=== PATIENT | female | born 1975 | race Caucasian/White ===

== ENCOUNTER → 2024-06-25 07:37 | Outpatient (REF) | payer OTHER, SELFPAY | LOC: HWWDC 07:37 | PROVIDERS: ATTENDING PHYSICIAN Physician Assistant Medical | DX: Z12.31 Encounter for screening mammogram for malignant neoplasm of breast (principal) | CPT/HCPCS: 77063; 77067 ==

== ENCOUNTER → 2024-07-02 08:34 | Outpatient (REF) | payer OTHER, SELFPAY | LOC: WDC 08:34 | PROVIDERS: ATTENDING PHYSICIAN Physician Assistant Medical | DX: R92.8 Other abnormal and inconclusive findings on diagnostic imaging of breast (principal) | CPT/HCPCS: 76642 ==

== ENCOUNTER 2024-12-15 02:50 | Inpatient (IN) | payer OTHER, SELFPAY ==
[2024-12-14 19:09] VITALS: BP 131/78
[2024-12-14] MEDS: TYLENOL 1000 MG PO (19:20)
[2024-12-14 19:38] LABS: % Basophils 0.3 % (0-2); % Eosinophils 0.1 % (0-6); % Immature Granulocytes 0.4 % (0-0.5); % Lymphocytes 3.8 % (20.5-51.1); % Monocytes 7.7 % (1.7-9.3); % Neutrophils 87.7 % (42.2-75.2); Absolute Lymphocytes 0.4 10^3/uL (1.2-3.4); Absolute Monocytes 0.8 10^3/uL (0.1-0.6); Absolute Neutrophils 8.8 10^3/uL (1.4-6.5); Hematocrit 36.3 % (37.0-47.0); Hemoglobin 12.1 g/dL (12.0-16.0); Mean Corp Hgb Conc. 33.3 g/dL (33.0-37.0); Mean Corpuscular Hgb 29.4 pg (27.0-31.0); Mean Corpuscular Volume 88.1 fL (81.0-99.0); Mean Platelet Volume 10.8 fL (7.4-10.4); Nucleated Red Blood Cells % 0 %; Platelet Count 134 10^3/uL (130-400); Red Blood Cell Count 4.12 10^6/uL (4.20-5.40); Red Cell Dist. Width 13.2 % (11.5-14.5)
[2024-12-14 19:48] LABS: Urine Albumin 3+ (Neg - Trace); Urine Bilirubin Negative (Negative); Urine Character Slightly Cloudy (Clear); Urine Color Yellow; Urine Glucose Negative (Negative); Urine Ketone 2+ (Negative); Urine Leukocyte 3+ (Negative); Urine Nitrite Positive (Negative); Urine Occult Blood 4+ (Negative); Urine Specific Gravity 1.015 (<1.030); Urine Urobilinogen 1+ (Neg - 1+)
[2024-12-14 19:49] LABS: HCG, Serum Qualitative Screen Negative
[2024-12-14 19:51] LABS: ALT (SGPT) 13 U/L (0-35); AST (SGOT) 23 U/L (14-36); Albumin 3.8 g/dl (3.5-5.0); Alkaline Phosphatase 91 U/L (38-126); Blood Urea Nitrogen 14 mg/dl (7-17); Calcium 9.3 mg/dl (8.4-10.2); Carbon Dioxide 24 mmol/L (22-30); Chloride 102 mmol/L (98-107); Glucose 132 mg/dl (70-99); Potassium 3.5 mmol/L (3.5-5.1); Sodium 135 mmol/L (135-145); Total Bilirubin 0.5 mg/dl (0.2-1.3); Total Protein 6.7 g/dl (6.3-8.2); eGFR > 60.00
[2024-12-14 19:53] LABS: COVID-19 Antigen Negative (Negative)
[2024-12-14 19:55] LABS: Urine Red Blood Cell >100 /HPF (0-2)
[2024-12-14 19:57] LABS: Troponin I < 0.012 ng/ml
[2024-12-14 19:57] LABS: Urine Bacteria Many (Negative); Urine White Cell 60-70 /HPF (0-5)
[2024-12-14 21:15] VITALS: BP 113/69; BMI 16.6
[2024-12-14 22:00] VITALS: BP 105/63
--- NOTE | 2024-12-14 22:08 | ED.GENMED ---
History of Present Illness
General
Chief Complaint: Fever
Time Seen by Provider: 12/14/24 21:54
History of Present Illness
History of Present Illness:
49-year-old female with history of celiac disease presents to the emergency department for evaluation of headaches, fever, nausea and vomiting, as well as left flank pain that began yesterday morning. She does report dark and even bloody urine. No
diarrhea. No ill contacts.
Review of Systems
Review of Systems
Allergies reviewed?: Yes
All Other Systems: ROS reviewed and negative except as documented in HPI and ROS
Phy Exam
Physical Exam
Physical Exam:
GEN: Well appearing, NAD, WDWN
HEENT: Oral mucosa moist, no scleral icterus
Cardiac: Regular rate
Lung: No respiratory distress, no tachypnea
Abdomen: Soft, grossly nontender
MSK: No gross deformity or injuries
Skin: Good color, no pallor or jaundice, no rashes
Neuro: AO x3, moves all extremities freely
Psych: Calm, cooperative
Sepsis
Sepsis Screening
Sepsis Assessment: Sepsis
Sepsis Screen
Sepsis Screen: Sepsis
Date: 12/15/24
Time: 00:02
Course
Orders/Labs/Results
Orders:
Orders
12/14/24 19:12
Electrocardiogram (*1) Urgent
Reason for Study: Chest Pain
12/14/24 19:13
EKG- Treatment ONCE
Test Result ONCE
12/14/24 19:16
Acetaminophen [Tylenol] 1,000 mg .ROUTE .STK-MED ONE
12/14/24 19:20
Acetaminophen [Tylenol] 1,000 mg PO NOW STA
12/14/24 19:24
COVID-19 Antigen Urgent
Source: Nasal Swab
Complete Blood Count/With Diff Urgent
Comprehensive Metabolic Panel Urgent
HCG, Serum Qualitative Screen Urgent
Troponin I Urgent
Influenza A+B Rapid Molecular Urgent
MARLON Source: Nasal Swab
Specimen Description:
Date Specimen was Collected: 12/14/24
Time Specimen was Collected: 19:13
12/14/24 19:41
Urinalysis Reflex To Culture Urgent
Date Specimen was Collected: 12/14/24
Time Specimen was Collected: 19:13
Urine Microscopic Reflex Cult Urgent
Urine Culture Urgent
MARLON Source: U
Specimen Description:
Date Specimen was Collected: 12/14/24
Time Specimen was Collected: 19:13
12/14/24 22:07
CT Abd/pel Without Iv Or Oral Urgent
Comment:
Reason For Exam: L flank pain
0.9% Sodium Chloride 1000 ml [Nss] 1,000 ml IV BOLUS
CefTRIAXone [Rocephin] 1,000 mg IV NOW STA
Ketorolac [Toradol] 15 mg IV NOW STA
Abnormal Lab Results
12/14/24 12/14/24
19:24 19:41
RBC 4.12 L 10^6/uL
(4.20-5.40)
Hct 36.3 L %
(37.0-47.0)
MPV 10.8 H fL
(7.4-10.4)
Absolute Neuts (auto) 8.8 H 10^3/uL
(1.4-6.5)
Absolute Lymphs (auto) 0.4 L 10^3/uL
(1.2-3.4)
Absolute Monos (auto) 0.8 H 10^3/uL
(0.1-0.6)
Neutrophils % 87.7 H %
(42.2-75.2)
Lymphocytes % 3.8 L %
(20.5-51.1)
Creatinine 0.5 L mg/dL
(0.6-1.0)
Glucose 132 H mg/dl
(70-99)
Urine Ketones 2+ A
(Negative)
Ur Occult Blood Reflex 4+ A
(Negative)
Urine Nitrite (Reflex) Positive A
(Negative)
Leukocyte Esterase Rfl 3+ A
(Negative)
Urine RBC >100 A /HPF
(0-2)
Urine WBC (Reflex) 60-70 A /HPF
(0-5)
Urine Bacteria (Reflex) Many A
(Negative)
Urine Albumin (Reflex) 3+ A
(Neg - Trace)
12/14/24 19:24
12/14/24 19:24
Vital Signs
Initial and Last Documented VS:
Initial Vital Signs
Temp Pulse Resp BP Pulse Ox
103.2 F H 127 18 131/78 99
12/14/24 19:09 12/14/24 19:09 12/14/24 19:09 12/14/24 19:09 12/14/24 19:09
Last Documented Vital Signs
Temp Pulse Resp BP Pulse Ox
102.7 F H 127 18 105/63 98
12/14/24 20:23 12/14/24 19:09 12/14/24 19:09 12/14/24 22:00 12/14/24 22:00
MDM/Problems Addressed
MDM/Problems Addressed:
Proximal kidney stone not likely obstructing and thus no indication for urgent intervention. Will admit for IV antibiotics due to pyelonephritis
*Critical Care Note
Total Time (30-74mins, 75-104mins- exclusive of procedures): Not Applicable
ED Attending Note
-
Portions of this chart may have been created with voice recognition software.� Occasional wrong word or��sound alike� substitutions may have occurred due to the inherent limitations of voice recognition software.
Discharge Plan
Departure
Patient Disposition: Admit
Date of Disposition: 12/15/24
Time of Disposition: 00:02
Admit to: Med/Surg
Presentation/result/management discussed w/ accepting MD/DO: Hospitalist
Discharge Problem:
Acute pyelonephritis
Referrals:
Micah Cespedes PA-C [Family Provider] -
Interventions
Interventions:
*Risk Screen - Suicide Last Done: 12/14/24 19:11
*General Assessment Last Done: 12/14/24 19:11
*Neglect/Abuse Screening Last Done: 12/14/24 19:11
*ED- Fall Risk Assessment Last Done: 12/14/24 21:18
*ED COVID-19 Vaccine History Last Done: 12/14/24 21:18
ED- Neurological Assessment Last Done: 12/14/24 21:18
ED-Skin Assessment Last Done: 12/14/24 21:18
Discharge Date and Time
Print Language: BAHRAINI
[2024-12-14] MEDS: NSS 1000 IV (22:16)
[2024-12-14] MEDS: TORADOL 15 MG IV (22:16)
[2024-12-14] MEDS: ROCEPHIN 1000 MG IV (22:18)
[2024-12-14 23:06] VITALS: BP 97/57
[2024-12-15] VITALS (9 sets, daily range): BP systolic 90–127; BP diastolic 55–82; BMI 16.8
--- NOTE | 2024-12-15 02:18 | HPS.HSE ---
Family Physician
-
Family Physician: CM OBRIEN PA-C
Chief Complaint
-
Fever
History of Present Illness
This is a 49-year-old female with past medical history significant for celiac disease, depression who presents to the emergency department with fever.
Patient reports 2 days of left-sided flank pain, she then developed nausea vomiting and she was unable to tolerate p.o. for 2 days. She started having fevers chills and sweats and she decided come to the emergency department. She denies dysuria.
She denies hematuria. She denies prior history of urinary tract infections or kidney stones. She denies any diarrhea. She has no known sick contact. She denies any recent antibiotic use. She denies any recent hospitalizations.
In the emergency department she was febrile to 102.9, blood pressure was 94/60 with a pulse of 120. Oxygen saturation was normal on room air. ECG shows sinus tachycardia to 108 and otherwise nonacute. CBC was unremarkable. Electrolytes
BUN/creatinine were all in normal range. UA was markedly positive for pyuria, bacteriuria nitrites and leukocyte esterase.
A CT scan of the abdomen pelvis shows a 4 mm without calculus in the left renal pelvis which does not appear to be obstructing with some surrounding fluid. There was dilation of the left ureter extending to the left ureteral vesicle junction with
surrounding edema. There was a small to moderate amount of free fluid in the pelvic cul-de-sac. Moderate fatty liver infiltration.
Medical History
Past Medical History
Past Medical History: Reports Psychiatric and Other (Celiac disease)
Past Surgical History: Reports Gynocological (Left-sided oophorectomy and oviduct resection)
Social History
Tobacco: Non-smoker
Alcohol: None
Drug: None
Employment: Employed
Family History
Family History: Not pertinent
Allergies / Home Medications
Allergies reflects when Allergies were last updated in [facility].
Home Medications with original date entered in [facility]
Allergy/Medication List:
Allergies
Allergy/AdvReac Type Severity Reaction Status Date / Time
NKA - No Known Allergies Allergy Uncoded 01/25/08 12:56
Venlafaxine 75 mg tablet, 75 mg p.o. daily
Review of Systems
-
History Source: Patient
Constitutional: Reports Fever
EENT: Reports No Symptoms
Respiratory: Reports No Symptoms
Cardiac: Reports No Symptoms
Abdomen/GI: Reports Nausea and Vomiting
: Reports Flank Pain
Musculoskeletal: Reports No Symptoms
Skin: Reports No Symptoms
Neurological: Reports No Symptoms
Endocrine: Reports No Symptoms
Hematologic/Lymphatic: Reports No Symptoms
Psych: Reports No Symptoms
Physical Exam
Vital Signs
Vital Signs
Temp Pulse Resp BP Pulse Ox
102.7 F H 127 18 90/55 96
12/14/24 20:23 12/14/24 19:09 12/14/24 19:09 12/15/24 02:00 12/15/24 02:00
Physical Exam
General: Comfortable and Chills
HEENT: NormoCephalic, Anicteric, Moist mucous membranes and Atraumatic
Respiratory: Clear
Cardiac: S1/S2 and Tachycardia
Breast: Deferred by me
GI: Soft, Non Tender, Non Distended and Normal Bowel Sounds
Rectal: Deferred by Provider
Genito-urinary: Costovertebral angle tend
Musculoskeletal: No Clubbing, No Cyanosis and No Edema
Skin: Warm
Neuro: AO x 3 and Nonfocal/grossly intact
Hematologic/Lymphatic: No Lymphadenopathy
Psych: Calm
Laboratory Results
-
12/14/24 19:24
12/14/24 19:24
Laboratory Results
Total Bilirubin 0.5 mg/dl (0.2-1.3) 12/14/24 19:24
AST 23 U/L (14-36) 12/14/24 19:24
ALT 13 U/L (0-35) 12/14/24 19:24
Alkaline Phosphatase 91 U/L (38-126) 12/14/24 19:24
Troponin I < 0.012 ng/ml 12/14/24 19:24
Data Reviewed
-
CT Scan: Report Reviewed by me
Medical Tests (Nuc Med, Echo, EKG etc): Image Personally Visualized and interpreted
Lab Data: Labs Reviewed by me
Old Records: Reviewed
Impression/Plan
-
IMPRESSION:
49-year-old female with history of depression and celiac disease who presents to the emergency department with flank pain and fever and found to have positive Fridays on urinalysis with CT scan showing a nonobstructing vomiting without stone in the
left renal pelvis with some surrounding fluid, there appears to be a dilation of the left ureter extending to the left ureteral vesicle junction consistent with recently passed stone. Separately with fever and tachycardia.
PLAN:
Pyelonephritis - Complicated with non-obstructing stone.
- admit to med/surg
- urine cultures sent
- obtain blood cultures if febrile
- IV ceftriaxone
- IV fluids
- pain control and antiemetics
- d/w urology, no indication for acute intervention but they'll see her in am.
DVT PPX - SCDs pending urology
Code status - Full Code
[2024-12-15] MEDS: LR 1000 IV ×2 (04:57→21:36)
[2024-12-15] MEDS: TORADOL 10 MG IV (05:03)
[2024-12-15 09:35] LABS: Blood Urea Nitrogen 15 mg/dl (7-17); Calcium 9.1 mg/dl (8.4-10.2); Carbon Dioxide 27 mmol/L (22-30); Chloride 103 mmol/L (98-107); Estimated Creatinine Clearance 85 ml/min; Glucose 99 mg/dl (70-99); Potassium 3.3 mmol/L (3.5-5.1); Sodium 136 mmol/L (135-145); eGFR > 60.00
[2024-12-15 09:46] LABS: Hematocrit 33.8 % (37.0-47.0); Hemoglobin 10.9 g/dL (12.0-16.0); Mean Corp Hgb Conc. 32.2 g/dL (33.0-37.0); Mean Corpuscular Hgb 29.1 pg (27.0-31.0); Mean Corpuscular Volume 90.1 fL (81.0-99.0); Red Blood Cell Count 3.75 10^6/uL (4.20-5.40); Red Cell Dist. Width 13.3 % (11.5-14.5); White Blood Cell Count 8.6 10^3/uL (4.8-10.8)
--- NOTE | 2024-12-15 10:11 | W.PN.URO.CBU ---
Today's Communication / Plan
-
no op roomplanned follow cxs of urine
Assessment / Plan
-
left pyelo with incidental d=]finding of 4 mm mnon obstructing stoen Will proceed with ibv abs and chs=angelica cxs. For ryan stone has little chance to have been setiology of infection but of increae pain or prolonged fevr then needs repaet ct scan
to see if stone moved
Diagnosis
-
Date of Service: December 15, 2024
-
Patient Diagnosis:left pyelonephritis non obstructing stone no hydro left renal pelvis
Post Op Day:
Subjective
-
lef t pain improving fever improving
Objective
-
Vital Signs
Temp Pulse Resp BP Pulse Ox
98 F 93 16 109/66 99
12/15/24 07:43 12/15/24 07:43 12/15/24 07:43 12/15/24 07:43 12/15/24 07:43
Intake and Output
12/14/24 12/15/24 12/16/24
06:59 06:59 06:59
Intake Total 480 / 480
Balance 480 / 480
Intake:
Oral fluids 480 / 480
Laboratory Results
12/15/24 08:59
12/15/24 08:59
Review of Systems
-
Constitutional: Chills
: Flank Pain and Dark Urine
Physical Exam
-
General - well developed, well nourished, no acute distress
Chest - clear bilaterally
Abdomen - soft, non-tender, positive bowel sounds, no CVAT, no incisional pain or distention
Genitalia - normal
Rectal - normal
Skin - warm & dry with no rash
Neuro - AOx3, no motor deficits
Extremities - no clubbing, no cyanosis, no edema
Incision - clean, dry
Dressing - clean, dry, intact
Care Review
Data Reviewed
Discussed with: Hospitalist and Nursing
CT Scan: Image Pers Reviewed
[2024-12-15] MEDS: ZOFRAN 4 MG IV (10:26)
[2024-12-15 10:31] LABS: Mean Platelet Volume 10.5 fL (7.4-10.4); Platelet Count 114 10^3/uL (130-400)
[2024-12-15] MEDS: DILAUDID 0.5 MG IV ×2 (11:33→20:18)
[2024-12-15] MEDS: REGLAN 10 MG IV (11:33)
--- NOTE | 2024-12-15 12:27 | W.PN.UPDATE ---
Addendum entered and electronically signed by Rogelio Pedersen MD 12/15/24 12:35:
Hypokalemia
replete
-since vomiting will proive a krider
Original Note:
Update Note
Progress Note Update
Seen and examined. Nausea with vomiting
Rigors
Scleral Anicteric
MMM
No JVD
CTABL
RRR, S1/S2
Soft, NT, ND, BS+
Warm, Dry
Left-sided CVA tenderness positive
AAOx3
Calm
Pyelonephritis secondary to non-obstructed stone
IV antibiotics with Rocephin
IV fluids with LR at a rate of 80 cc/h
Flomax started
Urine culture pending
Blood culture x 2 ordered
Nausea vomiting
Antiemetic, QTc 407
[2024-12-15] MEDS: FLOMAX 0.4 MG PO (12:47)
[2024-12-15] MEDS: KCL 270 MEQ IV (13:14)
--- NOTE | 2024-12-15 16:42 | CM ---
Alert awake oriented patient who lives alone in an apartment with 16 steps to enter .She is independent in driving and in all activities of daily living.Offered VN she declined.
No adaptive devices
Never had VN/SNF
Pharmacy [facility]
PCP Dr Cespedes
PLAN Home no needs
[2024-12-15] MEDS: Pyridium 100 MG PO (20:18)
[2024-12-15] MEDS: EFFEXOR XR 75 MG PO (21:32)
[2024-12-15] MEDS: STERILE WATER FOR INJECTION 10 ML IV (21:32)
[2024-12-15] MEDS: ROCEPHIN 1000 MG IV (21:33)
[2024-12-15] MEDS: TYLENOL 650 MG PO (23:05)
[2024-12-16] MEDS: ZOFRAN 4 MG IV ×2 (00:56→18:38)
[2024-12-16] MEDS: TORADOL 10 MG IV ×2 (00:56→20:45)
[2024-12-16 07:45] VITALS: BP 105/65
[2024-12-16] MEDS: FLOMAX 0.4 MG PO (07:46)
--- NOTE | 2024-12-16 12:39 | W.PN.URO.CBU ---
Today's Communication / Plan
-
stable continuwe present care
Assessment / Plan
-
left pyelo with incidental d=]finding of 4 mm mnon obstructing stone pt improving continue present care target cxs as avaiable
Diagnosis
-
Date of Service: December 16, 2024
-
Patient Diagnosis:
Post Op Day:
Patient Diagnosis:left pyelonephritis non obstructing stone no hydro left renal pelvis
Post Op Day:
Subjective
-
feeling better
Objective
-
Vital Signs
Temp Pulse Resp BP Pulse Ox
98.1 F 76 16 105/65 99
12/16/24 11:21 12/16/24 07:45 12/16/24 07:45 12/16/24 07:45 12/16/24 07:45
Intake and Output
12/15/24 12/16/24 12/17/24
06:59 06:59 06:59
Intake Total 480 / 480 1440 / 1440
Balance 480 / 480 1440 / 1440
Intake:
Oral fluids 480 / 480 1440 / 1440
Other:
Number of approximated MODERATE 2
amounts of urine
Laboratory Results
12/15/24 08:59
12/15/24 08:59
Review of Systems
-
: Flank Pain
Physical Exam
-
General - well developed, well nourished, no acute distress
Chest - clear bilaterally
Abdomen - soft, non-tender, positive bowel sounds, no CVAT, no incisional pain or distention
Genitalia - normal
Rectal - normal
Skin - warm & dry with no rash
Neuro - AOx3, no motor deficits
Extremities - no clubbing, no cyanosis, no edema
Incision - clean, dry
Dressing - clean, dry, intact
Care Review
Data Reviewed
Discussed with: Nursing and Family
[2024-12-16] MEDS: LR 1000 IV (12:50)
--- NOTE | 2024-12-16 13:01 | W.PN.HOSP.TC ---
Today's Communication/Plan
-
IV Rocephin
Follow-up on urine culture sensitivities and de-escalate Rocephin to oral
Continue Flomax
Continue IV fluids
Continue Pyridium
Assessment / Plan
Assessment / Plan
NAD, sitting upright in bed
Scleral Anicteric
MMM
No JVD
CTABL
RRR, S1/S2
Soft, NT, ND, BS+
Warm, Dry
Left-sided CVA tenderness positive
AAOx3
Calm
Pyelonephritis secondary to non-obstructed stone
IV antibiotics with Rocephin
IV fluids with LR at a rate of 80 cc/h
Flomax started
Urine culture Ecoli, await sensitivities
Blood culture x 2 ordered
Nausea vomiting
Antiemetic, QTc 407
Anticipated Discharge: 24 - 48 hours
Subjective/Interval History
-
Date of Service: December 16, 2024
Seen and examined. Intermittent nausea. No further vomiting. Flank pain continues to to be an issue however improving.
Continues to have burning with urination. Flank pain worse when urinating.
Objective Data
-
Vital Signs:
Vital Signs
Temp Pulse Resp BP Pulse Ox
98.1 F 76 16 105/65 99
12/16/24 11:21 12/16/24 07:45 12/16/24 07:45 12/16/24 07:45 12/16/24 07:45
I&O
12/15/24 12/16/24 12/17/24
06:59 06:59 06:59
Intake Total 480 / 480 1440 / 1440
Balance 480 / 480 1440 / 1440
[2024-12-16] MEDS: KCL 270 MEQ IV (14:30)
[2024-12-16] MEDS: DILAUDID 0.5 MG IV ×2 (14:34→18:39)
[2024-12-16 15:38] VITALS: BP 110/70
[2024-12-16] MEDS: FLUSH (NSS) 2 FLUSH IV (18:39)
[2024-12-16] MEDS: COMPAZINE 5 MG IV (20:44)
[2024-12-16] MEDS: STERILE WATER FOR INJECTION 10 ML IV (21:15)
[2024-12-16] MEDS: EFFEXOR XR 75 MG PO (21:15)
[2024-12-16] MEDS: ROCEPHIN 1000 MG IV (21:16)
[2024-12-16 23:00] VITALS: BP 98/52
[2024-12-17] MEDS: DILAUDID 0.5 MG IV (03:36)
[2024-12-17] MEDS: LR 1000 IV ×3 (07:11→18:31)
[2024-12-17 07:21] VITALS: BP 116/56
[2024-12-17] MEDS: FLOMAX 0.4 MG PO (07:34)
[2024-12-17] MEDS: TORADOL 10 MG IV (07:39)
[2024-12-17 10:37] LABS: Blood Urea Nitrogen 13 mg/dl (7-17); Calcium 8.8 mg/dl (8.4-10.2); Carbon Dioxide 27 mmol/L (22-30); Chloride 106 mmol/L (98-107); Estimated Creatinine Clearance 85 ml/min; Glucose 93 mg/dl (70-99); Potassium 4.1 mmol/L (3.5-5.1); Sodium 139 mmol/L (135-145); eGFR > 60.00
[2024-12-17 10:48] LABS: Hematocrit 32.9 % (37.0-47.0); Hemoglobin 10.5 g/dL (12.0-16.0); Mean Corp Hgb Conc. 31.9 g/dL (33.0-37.0); Mean Corpuscular Hgb 28.8 pg (27.0-31.0); Mean Corpuscular Volume 90.1 fL (81.0-99.0); Mean Platelet Volume 10.7 fL (7.4-10.4); Platelet Count 147 10^3/uL (130-400); Red Blood Cell Count 3.65 10^6/uL (4.20-5.40); Red Cell Dist. Width 13.6 % (11.5-14.5); White Blood Cell Count 5.6 10^3/uL (4.8-10.8)
[2024-12-17] MEDS: ROXICODONE 5 MG PO ×3 (13:22→22:09)
--- NOTE | 2024-12-17 14:57 | W.PN.HOSP.TC ---
Today's Communication/Plan
-
Maintain 1 more day of IV antibiotics
Changed to oral pain medication
Likely discharge earlier tomorrow
Assessment / Plan
Assessment / Plan
CT a/p
4 mm calculus in the left renal pelvis, which does not appear to be obstructing with some surrounding fluid.
Dilation of the left ureter extending to the left ureterovesical junction, with edema surrounding the left ureter. Small to moderate amount of free fluid within the pelvic cul-de-sac. Findings would be suggestive of recently passed distal ureteral
calculus. Of note, with history of fever, superimposed infection cannot be excluded.
Trace amount of pleural fluid within the posterior lower chest bilaterally. Mild dependent atelectasis.
Moderate fatty infiltration the liver.
Spleen has maximum dimension of 12.7 cm, in the upper range of normal.

1. Left-sided pyelonephritis
UTI from E coli
-CT abdomen pelvis finding as above suggestive of left-sided pyelonephritis
-Continues to have fever, frequency and severity trending down
-Urine culture growing E. coli which is pansensitive to antibiotics
-Maintain on IV Rocephin for another day
-Stop further IV fluid
-Maintain on prn oxy/toradol
2. Nausea/vomiting
-Continue symptomatic care
-Able to tolerate diet
3. Depression/anxiety
-maintain on Effexor 75mg/hs
SCD
Full code
Anticipated Discharge: Within 24 hours
Subjective/Interval History
-
Date of Service: December 17, 2024
Still has some left flank pain
still have some nausea. able to tolerate breakfast
fever last evening
Objective Data
-
Labs:
Laboratory Results
12/17/24
08:02
WBC 5.6
Hgb 10.5 L
Hct 32.9 L
Plt Count 147 D
Sodium 139
Potassium 4.1
Chloride 106
Carbon Dioxide 27
BUN 13
Creatinine 0.6
Glucose 93
Calcium 8.8
Vital Signs:
Vital Signs
Temp Pulse Resp BP Pulse Ox
98.3 F 68 18 116/56 97
12/17/24 10:51 12/17/24 07:21 12/17/24 07:21 12/17/24 07:21 12/17/24 07:21
I&O
12/16/24 12/17/24 12/18/24
06:59 06:59 06:59
Intake Total 1440 / 1440 1080 / 1080
Output Total 700 / 700
Balance 1440 / 1440 380 / 380
Review of Systems
-
Respiratory: Reports No Symptoms
Cardiac: Reports No Symptoms
Abdomen/GI: Reports Nausea; Denies Vomiting
Genitourinary: Reports Flank Pain
Physical Exam
-
General: Comfortable
HEENT: Negative Oxygen
Respiratory: Clear to Auscultation
Cardiac: Regular Rhythm and S1/S2; Negative Murmur or Rub
GI: Soft, Nontender and Nondistended
Genito-urinary: Costovertebral Angle Tend (Left side)
Musculoskeletal: No Edema
Neuro: Awake, Alert, Oriented, No Motor Deficits and Nonfocal/Grossly Intact
Psych: Calm
[2024-12-17 15:00] VITALS: BP 120/77
--- NOTE | 2024-12-17 17:43 | W.PN.URO.CBU ---
Today's Communication / Plan
-
call md if tempover 101.[address] scan to check stone
Assessment / Plan
-
left pyelo with incidental d=]finding of 4 mm mm non obstructing stone pt improving continue present care target cxs as sensitivities available however did have low grade temp fever last pm despite abs, if fever pain persists will
need repeat ct scan to check on stone
Diagnosis
-
Date of Service: December 17, 2024
-
Patient Diagnosis:
Post Op Day:
Patient Diagnosis:
Post Op Day:
Patient Diagnosis:left pyelonephritis non obstructing stone no hydro left renal pelvis
Post Op Day:
Subjective
-
some increaseed oain low grade temp last pm
Objective
-
Vital Signs
Temp Pulse Resp BP Pulse Ox
98.2 F 93 16 120/77 99
12/17/24 15:00 12/17/24 15:00 12/17/24 15:00 12/17/24 15:00 12/17/24 15:00
Intake and Output
12/16/24 12/17/24 12/18/24
06:59 06:59 06:59
Intake Total 1440 / 1440 1080 / 1080
Output Total 700 / 700
Balance 1440 / 1440 380 / 380
Intake:
Oral fluids 1440 / 1440 1080 / 1080
Output:
Urine, Voided 700 / 700
Other:
Number of approximated MODERATE 2 1
amounts of urine
Number of approximated LARGE 1
amounts of urine
Laboratory Results
12/17/24 08:02
12/17/24 08:02
Review of Systems
-
Constitutional: Fever
: Flank Pain
Physical Exam
-
General - well developed, well nourished, no acute distress
Chest - clear bilaterally
Abdomen - soft, non-tender, positive bowel sounds, no CVAT, no incisional pain or distention
Genitalia - normal
Rectal - normal
Skin - warm & dry with no rash
Neuro - AOx3, no motor deficits
Extremities - no clubbing, no cyanosis, no edema
Incision - clean, dry
Dressing - clean, dry, intact
Care Review
Data Reviewed
Discussed with: Hospitalist and Nursing
CT Scan: Image Pers Reviewed
[2024-12-17] MEDS: TYLENOL 650 MG PO (21:18)
[2024-12-17] MEDS: STERILE WATER FOR INJECTION 10 ML IV (21:18)
[2024-12-17] MEDS: ROCEPHIN 1000 MG IV (21:18)
[2024-12-17] MEDS: EFFEXOR XR 75 MG PO (21:18)
[2024-12-17 23:54] VITALS: BP 107/66
[2024-12-18 07:25] VITALS: BP 122/73
[2024-12-18 08:42] LABS: Hematocrit 32.3 % (37.0-47.0); Hemoglobin 10.6 g/dL (12.0-16.0); Mean Corp Hgb Conc. 32.8 g/dL (33.0-37.0); Mean Corpuscular Hgb 29.5 pg (27.0-31.0); Mean Platelet Volume 10.6 fL (7.4-10.4); Platelet Count 156 10^3/uL (130-400); Red Blood Cell Count 3.59 10^6/uL (4.20-5.40); Red Cell Dist. Width 13.6 % (11.5-14.5); White Blood Cell Count 4.7 10^3/uL (4.8-10.8)
--- NOTE | 2024-12-18 09:06 | W.PN.URO.CBU ---
Today's Communication / Plan
-
home whrn ok by hospital;ist
Assessment / Plan
-
left pyelo with incidental d=]finding of 4 mm mm non obstructing stone pt improving continue present [facility] when ok by hos[pital;ist
Diagnosis
-
Date of Service: December 18, 2024
-
Patient Diagnosis:
Post Op Day:
Patient Diagnosis:
Post Op Day:
Patient Diagnosis:
Post Op Day:
Patient Diagnosis:left pyelonephritis non obstructing stone no hydro left renal pelvis
Post Op Day:
Subjective
-
feels baseline no fever
Objective
-
Vital Signs
Temp Pulse Resp BP Pulse Ox
98.1 F 73 16 122/73 96
12/18/24 07:25 12/18/24 07:25 12/18/24 07:25 12/18/24 07:25 12/18/24 07:25
Intake and Output
12/17/24 12/18/24 12/19/24
06:59 06:59 06:59
Intake Total 1080 / 1080 3360 / 3360
Output Total 700 / 700 400 / 400
Balance 380 / 380 2960 / 2960
Intake:
Oral fluids 1080 / 1080 1440 / 1440
IV fluids (Total) 1919 / 1919
Output:
Urine, Voided 700 / 700 400 / 400
Other:
Number of approximated MODERATE 1 3
amounts of urine
Number of approximated LARGE 1
amounts of urine
Laboratory Results
12/18/24 07:44
Review of Systems
-
: No Symptoms
Physical Exam
-
General - well developed, well nourished, no acute distress
Chest - clear bilaterally
Abdomen - soft, non-tender, positive bowel sounds, no CVAT, no incisional pain or distention
Genitalia - normal
Rectal - normal
Skin - warm & dry with no rash
Neuro - AOx3, no motor deficits
Extremities - no clubbing, no cyanosis, no edema
Incision - clean, dry
Dressing - clean, dry, intact
[2024-12-18 09:38] LABS: Blood Urea Nitrogen 9 mg/dl (7-17); Calcium 8.9 mg/dl (8.4-10.2); Carbon Dioxide 32 mmol/L (22-30); Chloride 106 mmol/L (98-107); Estimated Creatinine Clearance 85 ml/min; Glucose 98 mg/dl (70-99); Potassium 3.8 mmol/L (3.5-5.1); Sodium 141 mmol/L (135-145); eGFR > 60.00
[2024-12-18] MEDS: LR IV ×2 (09:56→10:36)
[2024-12-18] MEDS: FLOMAX 0.4 MG PO (09:56)
[2024-12-18] MEDS: ROXICODONE 5 MG PO (10:04)
--- NOTE | 2024-12-18 10:48 | CM ---
Reviewed the chart notes and spoke with the patient at the bedside. Patient anticipates being discharged to home today. Patient's sister or niece will being providing transportation. CM continues to be available to patient/family and is
monitoring medical plan for needs at discharge.
Plan: Discharge to home when medically stable.
[2024-12-18 12:30] VITALS: BP 123/71
--- NOTE | 2024-12-18 14:03 | W.PN.HOSP.TC ---
Today's Communication/Plan
-
d/c home
Assessment / Plan
Assessment / Plan
CT a/p
4 mm calculus in the left renal pelvis, which does not appear to be obstructing with some surrounding fluid.
Dilation of the left ureter extending to the left ureterovesical junction, with edema surrounding the left ureter. Small to moderate amount of free fluid within the pelvic cul-de-sac. Findings would be suggestive of recently passed distal ureteral
calculus. Of note, with history of fever, superimposed infection cannot be excluded.
Trace amount of pleural fluid within the posterior lower chest bilaterally. Mild dependent atelectasis.
Moderate fatty infiltration the liver.
Spleen has maximum dimension of 12.7 cm, in the upper range of normal.

1. Left-sided pyelonephritis
UTI from E coli
-CT abdomen pelvis finding as above suggestive of left-sided pyelonephritis
-Continues to have fever, frequency and severity trending down
-Urine culture growing E. coli which is pansensitive to antibiotics
-Maintain on prn oxy/toradol
-Discharging on ciprofloxacin 500 mg twice daily for 5 more days - will get total 8 days abx
2. Nausea/vomiting -resolved
-Continue symptomatic care
-Able to tolerate diet
3. Depression/anxiety
-maintain on Effexor 75mg/hs
SCD
Full code
More than 30 minutes spent in discharge including
Final examination of the patient
Summarizing hospital stay
Instructions for continuing care to all relevant caregivers
Preparation of discharge records, prescriptions, and referral forms
Total time spent (in minutes): 38mins
Anticipated Discharge: Today
Subjective/Interval History
-
Date of Service: December 18, 2024
Pain is significantly improved
No nausea or vomiting
Afebrile overnight
Objective Data
-
Labs:
Laboratory Results
12/18/24
07:44
WBC 4.7 L
Hgb 10.6 L
Hct 32.3 L
Plt Count 156
Sodium 141
Potassium 3.8
Chloride 106
Carbon Dioxide 32 H
BUN 9
Creatinine 0.6
Glucose 98
Calcium 8.9
Vital Signs:
Vital Signs
Temp Pulse Resp BP Pulse Ox
97.9 F 76 14 123/71 98
12/18/24 12:30 12/18/24 12:30 12/18/24 12:30 12/18/24 12:30 12/18/24 12:30
I&O
12/17/24 12/18/24 12/19/24
06:59 06:59 06:59
Intake Total 1080 / 1080 3360 / 3360
Output Total 700 / 700 400 / 400
Balance 380 / 380 2960 / 2960
Review of Systems
-
Respiratory: Reports No Symptoms
Cardiac: Reports No Symptoms
Abdomen/GI: Reports No Symptoms
Physical Exam
-
General: Comfortable
HEENT: Negative Oxygen
Neuro: Awake, Alert, Oriented, No Motor Deficits and Nonfocal/Grossly Intact
Psych: Calm
--- NOTE | 2024-12-18 16:25 | W.DCSUMMARY ---
Discharge Summary
Discharge Data
Date of Admission: 12/15/24
Date of Discharge: 12/18/24
-
Pending Results: No
Hospital Course
Discharging Physician : Dr Hero Pedersen
Disposition : To home
Primary care physician : Dr Micah Cespedes
Principal Discharge diagnosis :
Left sided pyelonephritis
Escherichia Coli Urinary tract infection
Nausea/vomiting
Chronic Discharge diagnosis :
Depression/anxiety
Hospital Course :
Patient is a 49-year-old female with above-mentioned past medical history came to ER with new onset of nausea vomiting and left flank pain. Patient also had fever and chills and came to ER for further evaluation. In ER patient was found to be
septic with high-grade fever. Urinalysis was showing patient having significant pyuria and bacteriuria with nitrate positivity. A CT scan of abdomen pelvis was done which showed a 4 mm left renal pelvis stone which is nonobstructive in nature.
There was left upper ureteral inflammation noted suggestive of pyelonephritis. Patient was started on broad-spectrum IV antibiotic and urine and blood cultures were collected. Urology was involved in care and recommended conservative management
with antibiotic. Urine culture later identified E. coli as causative organism which was pansensitive to antibiotics. After improvement in clinical symptoms patient was transition to finishing course of ciprofloxacin. Patient is planned to be
followed up by urology in office.
Important imaging findings :
CT abdomen/pelvis
4 mm calculus in the left renal pelvis, which does not appear to be obstructing with some surrounding fluid. Dilation of the left ureter extending to the left ureterovesical junction, with edema surrounding the left ureter. Small to moderate amount
of free fluid within the pelvic cul-de-sac. Findings would be suggestive of recently passed distal ureteral calculus. Of note, with history of fever, superimposed infection cannot be excluded. Trace amount of pleural fluid within the posterior lower
chest bilaterally. Mild dependent atelectasis. Moderate fatty infiltration the liver. Spleen has maximum dimension of 12.7 cm, in the upper range of normal.
Procedure findings :
None
Discharge Plan
-
Patient Disposition: Home (Routine Discharge)
Discharge Diagnosis/Procedures: Acute left pyelonephritis from E coli
Condition: Fair
Diet: Regular
Activity: As tolerated
Driving Restrictions: As prior to admission
Bathing Restrictions: OK to Shower
Referrals:
Omar Guzmán MD [Active] - (call Dr Guzmán [phone] urology if questions problems please obtain urine culture at family doctor if symptoms or routinely 2- 4 weeks after yopu stop antibiotics You have a kidney stone if ever have
blood in urine or severe flank pain call urology or go to er)
Micah Cespedes PA-C [Family Provider] - in one week
Prescriptions:
New
ciprofloxacin HCl 500 mg tablet
500 mg PO BID Qty: 10 0RF
acetaminophen [Tylenol Extra Strength] 500 mg tablet
1,000 mg PO Q6H PRN (Reason: Mild mod pain) Qty: 30 0RF
ibuprofen 800 mg tablet
800 mg PO Q8H PRN (Reason: Sev pain) Qty: 10 0RF
Rx Instructions:
DO NOT TAKT MORE THAN 5 DAYS
Continued
venlafaxine [Effexor XR] 75 mg Capsule,Extended Release 24hr
75 mg PO HS
Discharge Orders:
Discharge Patient (As Directed); Ordered 12/18/24
Ordered By: Hero Pedersen
Discharge Date and Time
Discharge Date/Time: 12/18/24 12:41
Print Language: YAKUT
== END 2024-12-18 12:41 | disposition home or self-care (01) | DRG 690 ==
LOC: 3 WEST ACU 02:50
PROVIDERS: Emergency Medicine; Hospitalist; ADMITTING PHYSICIAN Internal Medicine; ATTENDING PHYSICIAN Hospitalist; CONSULT PHYSICIAN Specialist; EMERGENCY PHYSICIAN Emergency Medicine; FAMILY PHYSICIAN Physician Assistant Medical
DX: N13.6 Pyonephrosis (principal); J98.11 Atelectasis; B96.20 Unspecified Escherichia coli [E. coli] as the cause of diseases classified elsewhere; N20.0 Calculus of kidney; F32.A Depression, unspecified; F41.9 Anxiety disorder, unspecified; K76.0 Fatty (change of) liver, not elsewhere classified; Z11.52 Encounter for screening for COVID-19
CPT/HCPCS: 74176; 80048; 80053; 81003; 81015; 84484; 84703; 85025; 85027; 87040; 87086; 87088; 87186; 87502; 87811; 93005; 96361; 96374; 96375; 99285

== ENCOUNTER 2024-12-20 16:02 | Inpatient (IN) | payer OTHER, SELFPAY ==
[2024-12-20] VITALS (15 sets, daily range): BP systolic 98–152; BP diastolic 54–94; BMI 17.8
--- NOTE | 2024-12-20 11:40 | ED.GENMED ---
History of Present Illness
General
Chief Complaint: Abdominal Symptoms
Source: patient
Time Seen by Provider: 12/20/24 11:32
History of Present Illness
History of Present Illness:
49-year-old female recently discharged from this hospital for pyelonephritis. She was discharged on Cipro. Soon after taking her first dose of Cipro at home she started vomiting. She has not been able to stop vomiting since then. She also notes
associated headache. She did have a fever of 104 when she had a pyelonephritis however no longer has a fever. Blood cultures did not show any growth. She has a history of migraines. This headache she has currently feels like her migraine she has
had in the past
Phy Exam
Physical Exam
Physical Exam:
General: Well-appearing female no acute respiratory distress
HEENT: Normocephalic atraumatic
Heart: Regular rate and rhythm
Lungs: Clear no wheeze
Abdomen is soft mild left-sided costovertebral angle tenderness
Extremities: No cyanosis
Neurologic exam: Alert and oriented good strength normal gait conversing appropriately no facial asymmetry
Course
Orders/Labs/Results
Orders:
Orders
12/20/24 11:38
0.9% Sodium Chloride 1000 ml [Nss] 1,000 ml IV BOLUS
Diphenhydramine [Benadryl] 25 mg IV NOW STA
Prochlorperazine [Compazine] 10 mg IV NOW STA
12/20/24 11:39
Test Result ONCE
12/20/24 11:57
Complete Blood Count/With Diff Urgent
Comprehensive Metabolic Panel Urgent
HCG, Serum Qualitative Screen Urgent
Lipase Urgent
Urinalysis Reflex To Culture Urgent
Date Specimen was Collected: 12/20/24
Time Specimen was Collected: 11:15
Urine Microscopic Reflex Cult Urgent
Urine Culture Urgent
MARLON Source: U
Specimen Description:
Date Specimen was Collected: 12/20/24
Time Specimen was Collected: 11:15
12/20/24 13:43
CT Abd/pel Without Iv Or Oral Urgent
Comment:
Reason For Exam: left flank pain
12/20/24 15:36
CefTRIAXone [Rocephin] 1,000 mg IV NOW STA
Abnormal Lab Results
12/20/24
11:57
RBC 3.96 L 10^6/uL
(4.20-5.40)
Hgb 11.5 L g/dL
(12.0-16.0)
Hct 34.6 L %
(37.0-47.0)
Abs Immat Gran (auto) 0.1 H 10^3/uL
(0-0.05)
Immature Gran % 0.9 H %
(0-0.5)
Creatinine 0.5 L mg/dL
(0.6-1.0)
Total Protein 6.0 L g/dl
(6.3-8.2)
Albumin 3.2 L g/dl
(3.5-5.0)
Lipase 429 H U/L
(23-300)
Urine Ketones 2+ A
(Negative)
Ur Occult Blood Reflex 4+ A
(Negative)
Leukocyte Esterase Rfl 3+ A
(Negative)
Urine RBC 16-20 A /HPF
(0-2)
Urine WBC (Reflex) 11-15 A /HPF
(0-5)
Urine Bacteria (Reflex) Few A
(Negative)
Urine Albumin (Reflex) 1+ A
(Neg - Trace)
12/20/24 11:57
12/20/24 11:57
Vital Signs
Initial and Last Documented VS:
Initial Vital Signs
Temp Pulse Resp BP Pulse Ox
98.0 F 95 16 144/94 98
12/20/24 11:12 12/20/24 11:12 12/20/24 11:12 12/20/24 11:12 12/20/24 11:12
Last Documented Vital Signs
Temp Pulse Resp BP Pulse Ox
98.0 F 64 15 144/86 92
12/20/24 11:12 12/20/24 13:30 12/20/24 13:30 12/20/24 13:00 12/20/24 13:30
MDM/Problems Addressed
Differential Diagnosis Includes:
Vomiting. Question viral illness versus adverse reaction to new antibiotic. Given number of vomiting episodes will check for electrolyte abnormality. Suspect dehydration.
She also has a headache likely due to volume depletion and vomiting. Will treat symptoms with fluids Compazine Benadryl labs pending urine pending.
*Critical Care Note
Total Time (30-74mins, 75-104mins- exclusive of procedures): Not Applicable
Update Note
Update Note:
CT demonstrates 3 mm stone in left ureter causing mild obstruction. Patient is feeling better symptomatically after fluids and treatment. Discussed with urology. Given evidence of persistent UTI and recent diagnosis pyelonephritis urology plans
on the patient to the OR for stent. Hospitalist made aware as well Rocephin
ED Attending Note
-
Portions of this chart may have been created with voice recognition software.� Occasional wrong word or��sound alike� substitutions may have occurred due to the inherent limitations of voice recognition software.
Discharge Plan
Departure
Patient Disposition: Admit
Date of Disposition: 12/20/24
Time of Disposition: 15:44
Presentation/result/management discussed w/ accepting MD/DO: Hospitalist
Discharge Problem:
Acute pyelonephritis
Prescriptions:
No Action
venlafaxine [Effexor XR] 75 mg Capsule,Extended Release 24hr
75 mg PO HS
ciprofloxacin HCl 500 mg tablet
500 mg PO BID Qty: 10 0RF
acetaminophen [Tylenol Extra Strength] 500 mg tablet
1,000 mg PO Q6H PRN (Reason: Mild mod pain) Qty: 30 0RF
ibuprofen 800 mg tablet
800 mg PO Q8H PRN (Reason: Sev pain) Qty: 10 0RF
Rx Instructions:
DO NOT TAKT MORE THAN 5 DAYS
Referrals:
Micah Cespedes PA-C [Family Provider] -
Interventions
Interventions:
*Risk Screen - Suicide Last Done: 12/20/24 11:12
*General Assessment Last Done: 12/20/24 11:56
*Neglect/Abuse Screening Last Done: 12/20/24 11:12
*ED- Fall Risk Assessment Last Done: 12/20/24 11:56
*ED COVID-19 Vaccine History Last Done: 12/20/24 11:56
TK-Oghjph-Nwsmvdiixm Assessment Last Done: 12/20/24 11:57
Discharge Date and Time
Print Language: SLOVAK
[2024-12-20] MEDS: BENADRYL 25 MG IV (12:00)
[2024-12-20] MEDS: NSS 1000 IV ×2 (12:00→20:41)
[2024-12-20] MEDS: COMPAZINE 10 MG IV (12:00)
[2024-12-20 12:17] LABS: % Basophils 0.9 % (0-2); % Eosinophils 2.4 % (0-6); % Immature Granulocytes 0.9 % (0-0.5); % Lymphocytes 23.7 % (20.5-51.1); % Monocytes 6.8 % (1.7-9.3); % Neutrophils 65.3 % (42.2-75.2); Absolute Basophils 0.1 10^3/uL (0-0.2); Absolute Eosinophils 0.1 10^3/uL (0-0.7); Absolute Immature Granulocytes 0.1 10^3/uL (0-0.05); Absolute Lymphocytes 1.4 10^3/uL (1.2-3.4); Absolute Monocytes 0.4 10^3/uL (0.1-0.6); Absolute Neutrophils 3.8 10^3/uL (1.4-6.5); Hematocrit 34.6 % (37.0-47.0); Hemoglobin 11.5 g/dL (12.0-16.0); Mean Corp Hgb Conc. 33.2 g/dL (33.0-37.0); Mean Corpuscular Volume 87.4 fL (81.0-99.0); Mean Platelet Volume 9.3 fL (7.4-10.4); Nucleated Red Blood Cells % 0 %; Platelet Count 246 10^3/uL (130-400); Red Blood Cell Count 3.96 10^6/uL (4.20-5.40); Red Cell Dist. Width 12.9 % (11.5-14.5); White Blood Cell Count 5.8 10^3/uL (4.8-10.8)
[2024-12-20 12:26] LABS: HCG, Serum Qualitative Screen Negative
[2024-12-20 12:38] LABS: ALT (SGPT) 12 U/L (0-35); AST (SGOT) 21 U/L (14-36); Albumin 3.2 g/dl (3.5-5.0); Alkaline Phosphatase 78 U/L (38-126); Blood Urea Nitrogen 13 mg/dl (7-17); Calcium 9.2 mg/dl (8.4-10.2); Carbon Dioxide 28 mmol/L (22-30); Chloride 104 mmol/L (98-107); Estimated Creatinine Clearance 90 ml/min; Glucose 83 mg/dl (70-99); Lipase 429 U/L (23-300); Sodium 138 mmol/L (135-145); Total Bilirubin 0.5 mg/dl (0.2-1.3); eGFR > 60.00
[2024-12-20 13:52] LABS: Urine Albumin 1+ (Neg - Trace); Urine Bilirubin Negative (Negative); Urine Character Cloudy (Clear); Urine Color Yellow; Urine Glucose Negative (Negative); Urine Ketone 2+ (Negative); Urine Leukocyte 3+ (Negative); Urine Nitrite Negative (Negative); Urine Occult Blood 4+ (Negative); Urine Specific Gravity 1.015 (<1.030); Urine Urobilinogen Negative (Neg - 1+)
[2024-12-20 14:27] LABS: Urine Squamous Cell >30 /LPF (Few)
[2024-12-20 14:28] LABS: Urine Bacteria Few (Negative); Urine Mucus Few; Urine Red Blood Cell 16-20 /HPF (0-2)
--- NOTE | 2024-12-20 15:36 | CONS.URO ---
Addendum entered and electronically signed by Tenzin Bowser MD 12/20/24 15:45:
To OR for cystoscopy + left stent placement vs. left URS/LL/stone extraction/stent placement (if clinically feasible)
IV Levaquin final application reviewer to OR
Original Note:
Consultation
-
Date/Time Consultation Requested: 12/20/24
Date/Time Consultation Performed: 12/20/24
Requesting Provider: ED
Performing Provider: Niels
Reason for Consultation: obstructing proximal left ureteral stone, E. Coli cUTI
Medical History
History of Present Illness
49F recently admitted 12/14-12/18 for eft pyelonephritis (E. Coli on UCx, BCx x2 NG) re-presents with headache, vomiting, and persistent left flank pain.
Completing Ciprofloxacin antibiotic course upon discharge as instructed.
CTAP w/o IV contrast => 3 mm stone in proximal left ureter w/ moderate left hydronephrosis
Of note, 4 mm stone previously noted within left kidney (non-obstructing) during recent admission.
Past Medical History
Past Medical History: Psychiatric
Past Surgical History: Gynocological (left oophorectomy)
Social History
Tobacco: Non-smoker
Alcohol: None
Drug: None
Personal: Single
Living: With Family
Employment: Employed
Family History
Family History: Reviewed & Not Pertinent
Allergies/Home Medications
Allergies
Allergy/AdvReac Type Severity Reaction Status Date / Time
NKA - No Known Allergies Allergy Unknown Uncoded 12/20/24 11:14
Home Medications
�Medication �Instructions �Recorded �Confirmed �Type
venlafaxine 75 mg capsule,extended 75 mg PO HS 12/15/24 12/15/24 History
release 24 hr (Effexor XR)
acetaminophen 500 mg tablet 1,000 mg (2 x 500 mg) PO Q6H PRN 12/18/24 Rx
(Tylenol Extra Strength) Mild mod pain #30 tabs
ciprofloxacin HCl 500 mg tablet 500 mg PO BID #10 tabs 12/18/24 Rx
ibuprofen 800 mg tablet 800 mg PO Q8H PRN Sev pain #10 tabs 12/18/24 Rx
Review of Systems
-
History Source: Patient
A 12 point Review of Systems was completed except as noted: Yes
Constitutional: Reports No Symptoms
EENT: Reports No Symptoms
Respiratory: Reports No Symptoms
Cardiac: Reports No Symptoms
Abdomen/GI: Reports Vomiting
: Reports Flank Pain
Musculoskeletal: Reports No Symptoms
Skin: Reports No Symptoms
Neurological: Reports No Symptoms
Endocrine: Reports No Symptoms
Hematologic/Lymphatic: Reports No Symptoms
Psych: Reports No Symptoms
Physical Exam
Vital Signs
Vital Signs
Temp Pulse Resp BP Pulse Ox
98.0 F 64 15 144/86 92
12/20/24 11:12 12/20/24 13:30 12/20/24 13:30 12/20/24 13:00 12/20/24 13:30
Lab / Testing Results
Laboratory Results
12/20/24 11:57
12/20/24 11:57
Physical Exam
General: Well Developed and Well Nourished
HEENT: Normocephalic and Anicteric
Respiratory: Non Labored Respirations
Cardiac: Regular Rhythm
Breast: Deferred by me
GI: Soft, Non Tender and Non Distended
Rectal: Deferred by Provider
Genito-urinary: Costovertebral Angle Tend
Musculoskeletal: No Edema
Skin: Warm and Dry
Neuro: AO x 3 and Nonfocal/Grossly Intact
Hematologic/Lymphatic: No Lymphadenopathy
Psych: Calm and Intact Judgement
Assessment / Plan
-
Obstructing proximal left ureteral stone
E. Coli cUTI
Intractable left renal colic
12/14 UCx => E. Coli
12/14 BCx x2 => NG
CTAP w/o IV contrast => 3 mm stone in proximal left ureter w/ moderate left hydronephrosis
Of note, 4 mm stone previously noted within left kidney (non-obstructing) during recent admission.
Proximal migration of previously noted non-obstructing stone w/ new obstructive uropathy.
Data Reviewed
-
Total Time Spent with Patient (in minutes): [address] Scan: Image personally visualized and interpreted, Report Reviewed by Me, Discussed with Physician and Discussed with Patient
Lab Data: Labs Reviewed, Discussed with Physician and Discussed with Patient
Old Records: Reviewed
[2024-12-20] MEDS: ROCEPHIN 1000 MG IV (15:40)
--- NOTE | 2024-12-20 15:55 | HPS.HSE ---
Family Physician
-
Family Physician: CM OBRIEN PA-C
Chief Complaint
-
left flank pain
History of Present Illness
49-year-old female past medical history of pyelonephritis, anxiety/depression, endometriosis status post ovary resection, admitted from 12/14 to 12/18 for left-sided pyelonephritis secondary to E. coli. She had CT scan which showed 4 mm left renal
pelvis stone nonobstructive. She was treated with IV antibiotics and IV fluids.
She felt better until yesterday when she developed severe pain in her left flank again and nausea and vomiting. She also developed pink urine. Denies any urinary burning or frequency. Denies any fever at this time.
Denies smoking or alcohol use.
Medical History
Past Medical History
Past Medical History: Reports Other (pyelonephritis, anxiety/depression, endometriosis status post ovary resection)
Past Surgical History: Reports Other (ovary resection )
Social History
Tobacco: Non-smoker
Alcohol: None
Drug: None
Family History
Family History: Not pertinent
Allergies / Home Medications
Allergies reflects when Allergies were last updated in [employer].
Home Medications with original date entered in [employer]
Allergy/Medication List:
Allergies
Allergy/AdvReac Type Severity Reaction Status Date / Time
NKA - No Known Allergies Allergy Unknown Uncoded 12/20/24 11:14
Home Medications
venlafaxine 75 mg capsule,extended release 24 hr (Effexor XR) 75 mg PO HS 12/15/24
acetaminophen 500 mg tablet (Tylenol Extra Strength) 1,000 mg (2 x 500 mg) PO Q6H PRN Mild mod pain #30 tabs 12/18/24
ciprofloxacin HCl 500 mg tablet 500 mg PO BID #10 tabs 12/18/24
ibuprofen 800 mg tablet 800 mg PO Q8H PRN Sev pain #10 tabs 12/18/24
Review of Systems
-
History Source: Patient
A 12 point ROS was completed and negative except as noted: Yes
Constitutional: Reports No Symptoms
EENT: Reports No Symptoms
Respiratory: Reports No Symptoms
Cardiac: Reports No Symptoms
Abdomen/GI: Reports See HPI
: Reports See HPI
Musculoskeletal: Reports No Symptoms
Skin: Reports No Symptoms
Neurological: Reports No Symptoms
Endocrine: Reports No Symptoms
Hematologic/Lymphatic: Reports No Symptoms
Psych: Reports No Symptoms
Physical Exam
Vital Signs
Vital Signs
Temp Pulse Resp BP Pulse Ox
98.0 F 68 17 152/84 96
12/20/24 11:12 12/20/24 14:15 12/20/24 14:15 12/20/24 14:00 12/20/24 14:15
Physical Exam
General: Well Developed, Well Nourished and No Apparent Distress
HEENT: NormoCephalic, Moist mucous membranes and Atraumatic
Respiratory: Clear
Cardiac: S1/S2 and Regular Rhythm; No Murmur or Rub
GI: Soft, Non Tender, Non Distended and Normal Bowel Sounds; No Organomegaly
Rectal: Deferred by Provider
Genito-urinary: Costovertebral angle tend (left)
Musculoskeletal: No Clubbing, No Cyanosis and No Edema
Skin: No Rash
Neuro: Nonfocal/grossly intact
Laboratory Results
-
12/20/24 11:57
12/20/24 11:57
Laboratory Results
Total Bilirubin 0.5 mg/dl (0.2-1.3) 12/20/24 11:57
AST 21 U/L (14-36) 12/20/24 11:57
ALT 12 U/L (0-35) 12/20/24 11:57
Alkaline Phosphatase 78 U/L (38-126) 12/20/24 11:57
Lipase 429 U/L (23-300) H 12/20/24 11:57
Data Reviewed
-
Lab Data: Labs Reviewed by me
Old Records: Reviewed
Impression/Plan
-
IMPRESSION:
PLAN:
# Obstructive left ureteral stone
-CT scan shows 3 mm calculus in the left renal pelvis has migrated distally now in the proximal left ureter with moderate obstructive uropathy
-UA shows 11-15 WBC,
-N.p.o.
-IV fluids
-Ceftriaxone
-Zofran, Dilaudid as needed
-Urology consulted and plan for OR for stent today
Recent left pyelonephritis
-Discharged on ciprofloxacin
History of endometriosis status post left ovary resection
Anxiety/depression
-Continue venlafaxine
Full code
DVT prophylaxis-SCDs
N.p.o.
--- NOTE | 2024-12-20 16:00 | W.SUR.PREOP ---
Pre-Operative Surgical Note
-
I have examined this patient prior to the performance of the scheduled procedure.
The patient's condition is unchanged from the time of the current History and
Physical and the patient is able to undergo the scheduled procedure.
Potential risks and complications reviewed - including but not limited to urosepsis, bleeding, ureteral/bladder injury, risk of ureteral stricture formation, need for additional procedures/surgeries.
To OR for left stent placement vs. left URS/LL/stone extraction/stent placement (if clinically feasible)
IV Levaquin radiation safety officer to OR
Admitted to Hospital Medicine
--- NOTE | 2024-12-20 16:55 | W.IMMPOSTOP ---
Surgical Immed Post Op Note
-
Primary Surgeon: Niels
Pre-op Diagnosis: E. Coli cUTI and left pyelonephritis, obstructing left ureteral stone
Post-op Diagnosis: Same, urethral stenosis
Procedure Performed: cystoscopy, left RGP/stent placement
Anesthesia Type: LMA
Specimen / Cultures: None/None
Estimated Blood Loss: Negligible
Complications: None
Operative Findings: retracted stenosed urethral meatus, purulent urine noted in bladder and effluxing from left UO after guidewire decompression of left kidney.
Final KUB and cysto confirming appropriate left ureteral stent position.
[2024-12-20] MEDS: Pyridium 200 MG PO (17:56)
[2024-12-20] MEDS: DETROL LA 4 MG PO (17:56)
[2024-12-20] MEDS: EFFEXOR XR 75 MG PO (21:57)
[2024-12-20] MEDS: IMITREX 50 MG PO (21:57)
--- NOTE | 2024-12-20 23:31 | PTCARENOTE ---
Pt arrived 1900 from PACU. Pt AAOX3. VSS. no complaints of pain. IVF infusing. oriented to room and call alvarez. bed locked and in lowest position. family at bedside.
[2024-12-21] MEDS: TORADOL 15 MG IV ×3 (02:10→23:30)
[2024-12-21] MEDS: IMITREX 50 MG PO ×3 (02:11→23:28)
[2024-12-21 03:00] VITALS: BP 128/69
[2024-12-21] MEDS: NSS 1000 IV ×3 (04:39→21:16)
[2024-12-21 07:05] VITALS: BP 150/73
[2024-12-21 08:16] LABS: % Eosinophils 3.9 % (0-6); % Immature Granulocytes 0.8 % (0-0.5); % Lymphocytes 18.5 % (20.5-51.1); % Monocytes 7.2 % (1.7-9.3); % Neutrophils 68.6 % (42.2-75.2); Absolute Basophils 0.1 10^3/uL (0-0.2); Absolute Eosinophils 0.2 10^3/uL (0-0.7); Absolute Immature Granulocytes 0.1 10^3/uL (0-0.05); Absolute Lymphocytes 1.1 10^3/uL (1.2-3.4); Absolute Monocytes 0.4 10^3/uL (0.1-0.6); Absolute Neutrophils 4.2 10^3/uL (1.4-6.5); Hematocrit 36.7 % (37.0-47.0); Hemoglobin 12.1 g/dL (12.0-16.0); Mean Corpuscular Hgb 29.2 pg (27.0-31.0); Mean Corpuscular Volume 88.4 fL (81.0-99.0); Mean Platelet Volume 9.2 fL (7.4-10.4); Nucleated Red Blood Cells % 0 %; Platelet Count 253 10^3/uL (130-400); Red Blood Cell Count 4.15 10^6/uL (4.20-5.40); Red Cell Dist. Width 13.2 % (11.5-14.5); White Blood Cell Count 6.1 10^3/uL (4.8-10.8)
[2024-12-21 08:20] LABS: ALT (SGPT) 11 U/L (0-35); AST (SGOT) 18 U/L (14-36); Albumin 3.4 g/dl (3.5-5.0); Alkaline Phosphatase 91 U/L (38-126); Blood Urea Nitrogen 8 mg/dl (7-17); Calcium 9.1 mg/dl (8.4-10.2); Carbon Dioxide 26 mmol/L (22-30); Chloride 107 mmol/L (98-107); Estimated Creatinine Clearance 90 ml/min; Glucose 92 mg/dl (70-99); Potassium 4.1 mmol/L (3.5-5.1); Sodium 140 mmol/L (135-145); Total Bilirubin 0.4 mg/dl (0.2-1.3); Total Protein 5.9 g/dl (6.3-8.2); eGFR > 60.00
[2024-12-21 08:26] VITALS: BMI 17.4
--- NOTE | 2024-12-21 09:15 | W.PN.HOSP.TC ---
Addendum entered and electronically signed by Salima Paredes MD 12/21/24 16:35:
Underweight based on bmi
Original Note:
Today's Communication/Plan
-
see plan
Assessment / Plan
Assessment / Plan
PLAN:
# Obstructive left ureteral stone
-CT scan shows 3 mm calculus in the left renal pelvis has migrated distally now in the proximal left ureter with moderate obstructive uropathy
-UA shows 11-15 WBC,
-s/p cystoscopy, left RGP/stent placement by urology
-IV fluids
-Ceftriaxone
await urine cultures
Recent left pyelonephritis
-Discharged on ciprofloxacin
History of endometriosis status post left ovary resection
Anxiety/depression
-Continue venlafaxine
Full code
DVT prophylaxis-SCDs
N.p.o.
Anticipated Discharge: 24 - 48 hours
Subjective/Interval History
-
Date of Service: December 21, 2024
pt seen
reports headache, poorly controlled w migraine medicine
still w flank pain
reduced appetite
overall feels about 30% better
urine clear yellow no blood.
Objective Data
-
Labs:
Laboratory Results
12/21/24
07:34
WBC 6.1
Hgb 12.1
Hct 36.7 L
Plt Count 253
Sodium 140
Potassium 4.1
Chloride 107
Carbon Dioxide 26
BUN 8
Creatinine 0.5 L
Glucose 92
Calcium 9.1
Total Bilirubin 0.4
AST 18
ALT 11
Alkaline Phosphatase 91
Vital Signs:
Vital Signs
Temp Pulse Resp BP Pulse Ox
98.1 F 66 18 150/73 98
12/21/24 07:05 12/21/24 07:05 12/21/24 07:05 12/21/24 07:05 12/21/24 07:05
I&O
12/20/24 12/21/24 12/22/24
06:59 06:59 06:59
Intake Total 320 / 320
Balance 320 / 320
Review of Systems
-
History Source: Patient
All other systems: Reviewed and negative
Abdomen/GI: Reports Other (suprapubic pain, flank pain)
Neuro: Reports Headache
Physical Exam
-
General: Well Developed and No Apparent Distress
HEENT: Normocephalic, Atraumatic and Moist Mucous Membranes
Respiratory: Clear to Auscultation
Cardiac: Regular Rhythm and S1/S2; Negative Murmur, Rub or Gallop
GI: Soft, Nondistended, Normal Bowel Sounds and Other (flank pain); Negative Organomegaly
Rectal: Deferred by Provider
Musculoskeletal: No Clubbing, No Cyanosis and No Edema
Skin: Negative Rash
Neuro: Nonfocal/Grossly Intact
Data Reviewed
-
Labs: Labs Reviewed by me
[2024-12-21] MEDS: DILAUDID 0.5 MG IV (14:39)
[2024-12-21 15:06] VITALS: BP 128/78
--- NOTE | 2024-12-21 15:18 | CM ---
Initial assessment completed
Pt lives alone in an apartment; 16 steps to enter; FF set-up
Employed, independent, drives
DME - none
SNF/HH - no past hx
Has ride at d/c
PCP - Kevin Cespedes
Pharm - [facility]
Plan - anticipate home no needs
--- NOTE | 2024-12-21 15:30 | W.PN.URO.CBU ---
Today's Communication / Plan
-
Complete Ciprofloxacin treatment course for cUTI on discharge
F/U in 1-2 weeks for preop visit to schedule left ULS
D/w patient.
D/w Hospitalist.
Assessment / Plan
-
Obstructing proximal left ureteral stone
E. Coli cUTI
Intractable left renal colic
12/14 UCx => E. Coli
12/14 BCx x2 => NG
12/20 UCx => NG
CTAP w/o IV contrast => 3 mm stone in proximal left ureter w/ moderate left hydronephrosis
Of note, 4 mm stone previously noted within left kidney (non-obstructing) during recent admission.
12/20: s/p left RGP/stent placement
Diagnosis
-
Date of Service: December 21, 2024
-
Patient Diagnosis:
Obstructing proximal left ureteral stone
E. Coli cUTI
Intractable left renal colic
Post Op Day:
12/20: s/p left RGP/stent placement
Subjective
-
Feeling better in last 24 hrs.
Afebrile.
Left flank pain improved.
Objective
-
Vital Signs
Temp Pulse Resp BP Pulse Ox
98.1 F 66 18 150/73 98
12/21/24 07:05 12/21/24 07:05 12/21/24 07:05 12/21/24 07:05 12/21/24 07:05
Intake and Output
12/20/24 12/21/24 12/22/24
06:59 06:59 06:59
Intake Total 320 / 320
Balance 320 / 320
Intake:
Oral fluids 120 / 120
IV fluids (Total) 200 / 200
Normosol 200 / 200
Other:
Number of approximated MODERATE 2
amounts of urine
Laboratory Results
12/21/24 07:34
12/21/24 07:34
Physical Exam
-
General - well developed, well nourished, no acute distress
Abdomen - soft, non-tender, non-distended
Care Review
Data Reviewed
Discussed with: Hospitalist and Family
CT Scan: Report Pers Reviewed and Image Pers Reviewed
[2024-12-21] MEDS: STERILE WATER FOR INJECTION 10 ML IV (16:16)
[2024-12-21] MEDS: ROCEPHIN 1000 MG IV (16:16)
--- NOTE | 2024-12-21 16:20 | PN.CDI ---
CDI
- -
CDI:
Physician Documentation Request
Admit Date: 12/20/24 16:02
Dear Doctor Reggie,
Please review the following and provide your response in the progress notes.
Clinical Indicators:
Height: 5'6'
Weight:107lbs
BMI:17.4
If possible, please provide an associated diagnosis related to the abnormal BMI, such as:
BMI < or = to 19.9
Underweight
Weight Loss
Cachectic
Anorexia
BMI is not significant
Other
Use of terms such as suspected, likely, concern for, or probable (associated with a specific diagnosis that is being evaluated, monitored, or treated as if it exists) are acceptable and can be coded in the inpatient setting, when documented at the
time of discharge.
Thank you,
Geovanna Price RN, BSN
CDI Specialist
[facility]
Please use your independent medical judgment in providing your response.
[2024-12-21 19:00] VITALS: BP 126/74
[2024-12-21] MEDS: EFFEXOR XR 75 MG PO (21:16)
[2024-12-21 23:00] VITALS: BP 145/86
--- NOTE | 2024-12-22 05:18 | W.PN.UPDATE ---
Update Note
Progress Note Update
Of note - patient had nausea and dry heaving after starting Cipro on discharge from 12/14 admission.
Notes poor tolerance of Augmentin in past - diarrhea.
Advise non-fluoroquinolone or non-amoxicillin PO option on discharge - e.g. Bactrim DS.
D/w patient.
D/w Hospitalist.
[2024-12-22 07:05] VITALS: BP 133/74
--- NOTE | 2024-12-22 07:06 | W.PN.HOSP.TC ---
Today's Communication/Plan
-
discharge
Assessment / Plan
Assessment / Plan
Physical Exam
General: No acute distress appears comfortable at this time
HEENT: Normocephalic, Atraumatic and Moist Mucous Membranes
Respiratory: Clear to Auscultation
Cardiac: Regular Rhythm and S1/S2; Negative Murmur, Rub or Gallop
Abd: Soft, Nondistended, Normal Bowel Sounds, left flank tenderness improved as per patient
Musculoskeletal: No Clubbing, No Cyanosis and No Edema
Skin: Negative Rash
Neuro: Awake Alert Conversant Coherent
49F here for left ureteral stone and associate complicated UTI/pyelonephritis
PLAN:
# Obstructive left ureteral stone
#Left pyelonephritis
-previously treated for pyelonephritis and discharged on ciprofloxacin, patient however could not tolerate medication
-CT scan showed 3 mm calculus in the left renal pelvis migrated distally in the proximal left ureter with moderate obstructive uropathy
-Pyuria
-s/p cystoscopy, left RGP/stent placement by urology
-IV fluids completed tolerating diet
-urine cx noted no growth
-Ceftriaxone switched to Bactrim to complete total 14 days abx. (did not tolerate cipro d/t n/v and poor tolerance Augment d/t diarrhea)
History of endometriosis status post left ovary resection
Anxiety/depression
-Continue venlafaxine
BMI 17.4 underweight
Full code
DVT prophylaxis-SCDs
Medically stable for discharge home with outpatient follow up recommendations.
Total Time Preparing Discharge ___40____ minutes including examination of the patient, summary of the hospital stay, instructions for continuing care to all relevant caregivers; and preparation of discharge records, prescriptions, and referral
forms if necessary.
Anticipated Discharge: Today
Subjective/Interval History
-
Date of Service: December 22, 2024
Reports feeling well significant improvement in symptoms including pain dysuria left CVA tenderness though not resolved.
Objective Data
-
Labs:
Laboratory Results
12/22/24
06:21
WBC Pending
Hgb Pending
Hct Pending
Plt Count Pending
Sodium Pending
Potassium Pending
Chloride Pending
Carbon Dioxide Pending
BUN Pending
Creatinine Pending
Glucose Pending
Calcium Pending
Total Bilirubin Pending
AST Pending
ALT Pending
Alkaline Phosphatase Pending
Vital Signs:
Vital Signs
Temp Pulse Resp BP Pulse Ox
98.0 F 75 16 145/86 97
12/21/24 23:00 12/21/24 23:00 12/21/24 23:00 12/21/24 23:00 12/21/24 23:00
I&O
12/21/24 12/22/24 12/23/24
06:59 06:59 06:59
Intake Total 320 / 320 2280 / 2280
Balance 320 / 320 2280 / 2280
[2024-12-22 07:55] LABS: % Basophils 0.9 % (0-2); % Immature Granulocytes 0.9 % (0-0.5); % Lymphocytes 22.5 % (20.5-51.1); % Monocytes 7.9 % (1.7-9.3); % Neutrophils 63.8 % (42.2-75.2); Absolute Basophils 0.1 10^3/uL (0-0.2); Absolute Eosinophils 0.3 10^3/uL (0-0.7); Absolute Immature Granulocytes 0.1 10^3/uL (0-0.05); Absolute Lymphocytes 1.5 10^3/uL (1.2-3.4); Absolute Monocytes 0.5 10^3/uL (0.1-0.6); Absolute Neutrophils 4.3 10^3/uL (1.4-6.5); Hematocrit 33.8 % (37.0-47.0); Hemoglobin 11.2 g/dL (12.0-16.0); Mean Corp Hgb Conc. 33.1 g/dL (33.0-37.0); Mean Corpuscular Hgb 29.2 pg (27.0-31.0); Mean Corpuscular Volume 88.3 fL (81.0-99.0); Mean Platelet Volume 9.8 fL (7.4-10.4); Nucleated Red Blood Cells % 0 %; Platelet Count 243 10^3/uL (130-400); Red Blood Cell Count 3.83 10^6/uL (4.20-5.40); Red Cell Dist. Width 13.2 % (11.5-14.5); White Blood Cell Count 6.8 10^3/uL (4.8-10.8)
[2024-12-22 09:23] LABS: ALT (SGPT) 11 U/L (0-35); AST (SGOT) 23 U/L (14-36); Albumin 3.4 g/dl (3.5-5.0); Alkaline Phosphatase 83 U/L (38-126); Blood Urea Nitrogen 6 mg/dl (7-17); Carbon Dioxide 25 mmol/L (22-30); Chloride 103 mmol/L (98-107); Estimated Creatinine Clearance 87 ml/min; Glucose 82 mg/dl (70-99); Potassium 3.9 mmol/L (3.5-5.1); Sodium 138 mmol/L (135-145); Total Bilirubin 0.4 mg/dl (0.2-1.3); Total Protein 6.1 g/dl (6.3-8.2); eGFR > 60.00
[2024-12-22 11:00] VITALS: BP 131/78
[2024-12-22] MEDS: BACTRIM DS 800 MG/160 MG 1 TABLET PO (11:30)
[2024-12-22 15:31] VITALS: BP 136/85
--- NOTE | 2024-12-22 15:36 | W.DCSUMMARY ---
Discharge Summary
Discharge Data
Date of Admission: 12/20/24
Date of Discharge: 12/22/24
-
Pending Results: No
Discharge Plan
-
Patient Disposition: Home (Routine Discharge)
Discharge Diagnosis/Procedures: obstructing left ureteral stone
history E. Coli positive urine culture
complicated UTI/pyelonephritis status post left ureteral stent placement
Condition: Fair
Diet: Regular
Activity: As tolerated
Driving Restrictions: As prior to admission
Bathing Restrictions: None
Activity Restrictions/Additional Instructions:
Please follow up with primary care provider in 1 week of discharge and Urology in 1-2 weeks of discharge.
Bactrim has been prescribed for complicated urinary tract infection, left pyelonephritis. January 02, 2025 is last day for antibiotics.
Please take medications as prescribed/recommended and follow up with primary care provider and/or other healthcare provider involved in your care for further adjustments to your medication regimen as necessary.
Referrals:
Tenzin Bowser MD [Active] - in one to two weeks
(Please call [facility] to make a preop visit with Dr. Bowser 1-2 weeks after your procedure.
You will be scheduled for an outpatient kidney stone surgery to remove your stone at that visit.)
Micah Cespedes PA-C [Family Provider] - in one week
Prescriptions:
New
sulfamethoxazole-trimethoprim 800-160 mg Tablet
1 tab PO BID Qty: 23 0RF
Rx Instructions:
January 02, 2025 is last day for antibiotics
Continued
venlafaxine [Effexor XR] 75 mg Capsule,Extended Release 24hr
75 mg PO HS
acetaminophen [Tylenol Extra Strength] 500 mg tablet
1,000 mg PO Q6H PRN (Reason: Mild mod pain) Qty: 30 0RF
ibuprofen 800 mg tablet
800 mg PO Q8H PRN (Reason: Sev pain) Qty: 10 0RF
Rx Instructions:
DO NOT TAKT MORE THAN 5 DAYS
sumatriptan succinate 50 mg Tablet
50 mg PO PRN PRN (Reason: migraines )
Discharge Orders:
Discharge Patient (As Directed); Ordered 12/22/24
Ordered By: Willard Johnston
Discharge Date and Time
Print Language: [place] ISLAND[place]
== END 2024-12-22 16:44 | disposition home or self-care (01) | DRG 660 ==
LOC: 2 SOUTH 16:02
PROVIDERS: Internal Medicine; Physician Assistant; ADMITTING PHYSICIAN Hospitalist; ATTENDING PHYSICIAN Internal Medicine; CONSULT PHYSICIAN Surgery; EMERGENCY PHYSICIAN Emergency Medicine; FAMILY PHYSICIAN Physician Assistant Medical
PROC: 0T778DZ Dilation of Left Ureter with Intraluminal Device, Via Natural or Artificial Opening Endoscopic (ICD-10-PCS; 2024-12-20)
PROC: BT1F1ZZ Fluoroscopy of Left Kidney, Ureter and Bladder using Low Osmolar Contrast (ICD-10-PCS; 2024-12-20)
DX: N13.6 Pyonephrosis (principal); F32.A Depression, unspecified; F41.9 Anxiety disorder, unspecified; B96.20 Unspecified Escherichia coli [E. coli] as the cause of diseases classified elsewhere; Z90.721 Acquired absence of ovaries, unilateral; Z68.1 Body mass index [BMI] 19.9 or less, adult; R63.6 Underweight
CPT/HCPCS: 74176; 74420; 76000; 80053; 81003; 81015; 83690; 84703; 85025; 87086; 96361; 96374; 96375; 99285; A4300; C2617

== ENCOUNTER 2025-01-18 21:24 | Inpatient (IN) | payer SELFPAY ==
[2025-01-18] VITALS (7 sets, daily range): BP systolic 98–119; BP diastolic 55–76; BMI 16.5; BMI 16.7
[2025-01-18 15:47] LABS: % Basophils 0.6 % (0-2); % Eosinophils 1.1 % (0-6); % Immature Granulocytes 0.4 % (0-0.5); % Lymphocytes 1.9 % (20.5-51.1); Absolute Basophils 0.1 10^3/uL (0-0.2); Absolute Eosinophils 0.2 10^3/uL (0-0.7); Absolute Immature Granulocytes 0.1 10^3/uL (0-0.05); Absolute Lymphocytes 0.3 10^3/uL (1.2-3.4); Absolute Monocytes 0.5 10^3/uL (0.1-0.6); Absolute Neutrophils 15.1 10^3/uL (1.4-6.5); Hematocrit 35.8 % (37.0-47.0); Hemoglobin 11.6 g/dL (12.0-16.0); Mean Corp Hgb Conc. 32.4 g/dL (33.0-37.0); Mean Corpuscular Hgb 32.9 pg (27.0-31.0); Mean Corpuscular Volume 101.4 fL (81.0-99.0); Mean Platelet Volume 9.5 fL (7.4-10.4); Nucleated Red Blood Cells % 0 %; Platelet Count 283 10^3/uL (130-400); Red Blood Cell Count 3.53 10^6/uL (4.20-5.40); Red Cell Dist. Width 18.6 % (11.5-14.5); White Blood Cell Count 16.2 10^3/uL (4.8-10.8)
[2025-01-18 15:56] LABS: Lactic Acid 1.5 mmol/L (0.7-2.0)
[2025-01-18 15:58] LABS: ALT (SGPT) 26 U/L (0-35); AST (SGOT) 45 U/L (14-36); Albumin 5.5 g/dl (3.5-5.0); Alkaline Phosphatase 86 U/L (38-126); Blood Urea Nitrogen 22 mg/dl (7-17); Calcium 10.5 mg/dl (8.4-10.2); Carbon Dioxide 26 mmol/L (22-30); Chloride 104 mmol/L (98-107); Glucose 197 mg/dl (70-99); Potassium 4.6 mmol/L (3.5-5.1); Sodium 143 mmol/L (135-145); Total Bilirubin 1.7 mg/dl (0.2-1.3); Total Protein 8.5 g/dl (6.3-8.2); eGFR > 60.00
--- NOTE | 2025-01-18 18:58 | ED.GENMED ---
History of Present Illness
General
Chief Complaint: Fever
Source: patient and physician
Time Seen by Provider: 01/18/25 18:52
History of Present Illness
History of Present Illness:
49-year-old female with past medical history of kidney stones status post left ureteral stent, complicated by acute pyelonephritis last month, presenting back to the emergency department for evaluation and anticipate admission at the request of
urology due to recurring fever last night of 102.5, nausea and vomiting, left flank pain and recurring urinary symptoms. Patient had a urinalysis done earlier in the week which showed UTI and she was started on Biaxin antibiotics which she
continues to take over the last 3 days. Patient endorses continued left flank pain rated 9 out of 10, constant, throbbing sensation, nonradiating. She last took some Advil around 11 AM. Still notes associated nausea with last episode of vomiting
occurring while in the waiting room. No other concern at this time
Past History
Past History
ED Past Medical History: Psychiatric and Other (Celiac disease)
ED Past Surgical History: Gynecological
Social History
Tobacco: Non-smoker
Alcohol: Occasional
Drug: None
Personal:
Living: with family
Review of Systems
Review of Systems
All Other Systems: ROS reviewed and negative except as documented in HPI and ROS
Phy Exam
Physical Exam
Physical Exam:
GENERAL: Alert , in no apparent distress but does appear uncomfortable
EYE: clear conjunctiva b/l
HEAD: NCAT
ENT: mmm.
CARDIAC: Regular rate and rhythm .
LUNGS: Clear breath sounds bilaterally, no acute respiratory distress, no wheezes/rales/rhonchi
ABDOMEN: Soft, without focal tenderness, no r/g, left CVA tenderness
NEUROLOGICAL: Alert and oriented
SKIN: Warm and dry, skin intact.
MUSCULOSKELETAL: well perfused.
PSYCH: Normal and appropriate interaction.
Scores
Heart Failure Risk
Heart Failure Risk Score: Not Applicable
Heart Score for Chest Pain Patients
STEMI patient?: Not applicable
Withdrawal Assessment of Alcohol
Withdrawal Assessment Completed?: Not applicable
Course
Orders/Labs/Results
Orders:
Orders
01/18/25 15:20
Straight cath- Treatment ONCE
01/18/25 15:24
Complete Blood Count/With Diff Urgent
Comprehensive Metabolic Panel Urgent
Lactic Acid Q4H
Comment: ON ICE, CANCEL 2ND ORDER IF FIRST LACTIC ACID LEVEL <2
Blood Culture Q20M
MARLON Source: Blood/Venous
Specimen Description:
Comment: Urgent from separate sites. If patient screens positive for possible sepsis
01/18/25 16:40
Dextrose 50%-Water [Dextrose 50% Syringe] 12.5 grams IV PROCEDURE-PRN PRN
HYDROmorphone [Dilaudid] 0.25 mg IV PACU-Q5MPRN PRN
HYDROmorphone [Dilaudid] 0.5 mg IV PACU-Q5MPRN PRN
Insulin Aspart [NOVOLOG vial] See Protocol SC PROCEDURE- Q2H PRN PRN
Meperidine [Demerol] 12.5 mg IV PACU-Q5MPRN PRN
Ondansetron Injectable [Zofran] 4 mg IV PACU-ONCEPRN PRN
Prochlorperazine [Compazine] 5 mg IV PACU-ONCEPRN PRN
Bedside Glucose Monitoring As Directed
Frequency: Q2H
Additional Instructions:: UNTIL PATIENT LEAVES PROCEDURE AREA
Notify MD As Directed
Notify physician if: for SDS patients with known or suspected sleep obstructive sleep apnea, monitor in the
PACU.
Notify MD for any apneic/desaturation episodes
O2 Therapy [RESP] Urgent
Titrate/Wean O2 to maintain O2 sat greater than (%): 92
Special Instructions: -Provide supplemental oxygen to achieve O2 sat of 92% or greater.
-After 15 min, may wean O2 and discontinue if patient is able to maintain O2 sat of 92%
or greater during recovery period.
If patient is a discharge home, without oxygen therapy, notify anestheiologist if
unable to maintain O2 SAT of 92% or greater on room air for MD clearance.
01/18/25 16:45
0.9% Sodium Chloride 1000 ml [Nss] 1,000 ml IV PER PROTOCOL
01/18/25 18:57
Urinalysis Reflex To Culture Urgent
01/18/25 19:03
0.9% Sodium Chloride 1000 ml [Nss] 1,400 ml IV NOW STA
Cefepime HCl [Maxipime] 1,000 mg IV NOW STA
01/18/25 19:18
Blood Culture Q20M
MARLON Source: Blood/Venous
Specimen Description:
Comment: Urgent from separate sites. If patient screens positive for possible sepsis
01/18/25 19:26
HYDROmorphone [Dilaudid] 1 mg IV NOW STA
Ondansetron Injectable [Zofran] 4 mg IV NOW STA
Abnormal Lab Results
01/18/25
15:24
WBC 16.2 H 10^3/uL
(4.8-10.8)
RBC 3.53 L 10^6/uL
(4.20-5.40)
Hgb 11.6 L g/dL
(12.0-16.0)
Hct 35.8 L %
(37.0-47.0)
MCV 101.4 H fL
(81.0-99.0)
MCH 32.9 H pg
(27.0-31.0)
MCHC 32.4 L g/dL
(33.0-37.0)
RDW 18.6 H %
(11.5-14.5)
Abs Immat Gran (auto) 0.1 H 10^3/uL
(0-0.05)
Absolute Neuts (auto) 15.1 H 10^3/uL
(1.4-6.5)
Absolute Lymphs (auto) 0.3 L 10^3/uL
(1.2-3.4)
Neutrophils % 93.0 H %
(42.2-75.2)
Lymphocytes % 1.9 L %
(20.5-51.1)
BUN 22 H mg/dl
(7-17)
Glucose 197 H mg/dl
(70-99)
Calcium 10.5 H mg/dl
(8.4-10.2)
Total Bilirubin 1.7 H mg/dl
(0.2-1.3)
AST 45 H U/L
(14-36)
Total Protein 8.5 H g/dl
(6.3-8.2)
Albumin 5.5 H g/dl
(3.5-5.0)
01/18/25 15:24
01/18/25 15:24
Vital Signs
Initial and Last Documented VS:
Initial Vital Signs
Temp Pulse Resp Pulse Ox
98.5 F 133 18 99
01/18/25 15:18 01/18/25 15:18 01/18/25 15:18 01/18/25 15:18
Last Documented Vital Signs
Temp Pulse Resp BP Pulse Ox
99 F 102 14 119/62 95
01/18/25 19:15 01/18/25 19:45 01/18/25 19:45 01/18/25 19:00 01/18/25 19:15
MDM/Problems Addressed
Differential Diagnosis Includes:
Pyelonephritis, cystitis, kidney stone/ureteral colic, flu
MDM/Problems Addressed:
49-year-old female presenting to the emergency department at the request of urology with concern for recurring acute pyelonephritis. Recent admission to this facility for the same. Fever last night, has had urinary symptoms and worsening left
flank pain. Patient appears to both here. Labs reveal a leukocytosis of 16,000 and mild tenia. She is significantly tachycardic around 120bpm, 130s on arrival. Will initiate sepsis workup, cultures ordered, fluids ordered and antibiotics. I
notified urology who plans to see the patient in consult.
*Pulse Oximetry
Patient hypoxic: no
*Critical Care Note
Total Time (30-74mins, 75-104mins- exclusive of procedures): Not Applicable
Patient Management
Discussion with other providers: Hospitalist and Educational Psychologist
Escalation/DeEscalation of care consider admission/obs:
Hospitalist team accepts for continued evaluation and treatment
ED Attending Note
-
Portions of this chart may have been created with voice recognition software.� Occasional wrong word or��sound alike� substitutions may have occurred due to the inherent limitations of voice recognition software.
Discharge Plan
Departure
Patient Disposition: Admit
Date of Disposition: 01/18/25
Time of Disposition: 19:37
Presentation/result/management discussed w/ accepting MD/DO: Hospitalist
Discharge Problem:
Pyelonephritis
Prescriptions:
No Action
venlafaxine [Effexor XR] 75 mg Capsule,Extended Release 24hr
75 mg PO HS
sumatriptan succinate 50 mg Tablet
50 mg PO DAILYPRN PRN (Reason: migraines )
sulfamethoxazole-trimethoprim 800-160 mg Tablet
1 tab PO BID Qty: 23 0RF
trazodone 50 mg Tablet
100 mg PO HSPRN PRN (Reason: sleep)
amitriptyline 10 mg Tablet
10 mg PO HS
ibuprofen [Advil] 200 mg Tablet
400 mg PO Q6HPRN PRN (Reason: mild pain)
Referrals:
Micah Cespedes PA-C [Family Provider] -
Interventions
Interventions:
*Risk Screen - Suicide Last Done: 01/18/25 19:11
*General Assessment Last Done: 01/18/25 19:07
*Neglect/Abuse Screening Last Done: 01/18/25 19:11
*ED- Fall Risk Assessment Last Done: 01/18/25 19:07
*ED COVID-19 Vaccine History Last Done: 01/18/25 19:07
ED- Neurological Assessment Last Done: 01/18/25 19:25
ED-Skin Assessment Last Done: 01/18/25 19:25
Discharge Date and Time
Print Language: CHINESE
--- NOTE | 2025-01-18 19:02 | EDRN ---
Pt arrives w/ PACU orders written by Dr. Hunt.
--- NOTE | 2025-01-18 19:05 | EDRN ---
Per Yue ABREU pt was to go to OR for infected kidney stone but cancelled when learned pt already has a stent in place.
[2025-01-18] MEDS: NSS 1400 ML IV (19:23)
--- NOTE | 2025-01-18 19:25 | EDRN ---
oncology technician Ochoa in room w/ pt at this time.
[2025-01-18] MEDS: ZOFRAN 4 MG IV (19:39)
[2025-01-18] MEDS: MAXIPIME 1000 MG IV (19:39)
[2025-01-18] MEDS: DILAUDID 1 MG IV (19:39)
--- NOTE | 2025-01-18 20:09 | HPS.HSE ---
Addendum entered and electronically signed by Bo Mishra DO 01/18/25 21:26:
Patient seen and examined independently. Agree with findings and plan as set forth by YINKA Colon.
Patient is a 49y F with H significant for recent pyelonephritis s/p L ureteral stent placement who presents to ED complaining of L flank pain, fever at home to 102 and recurrent dysuria. Patient states that she was seen by her Urologist
earlier this week and had been tentatively scheduled for stent removal on . UA / culture done on Tuesday were reportedly positive for infection and patient was started on Bactrim ( does Tuesday AM) to take for 5 days and then re-assess.
With persistent fever and flank pain she presented to the ED for further evaluation.
Ass:
Left Ureteral Stent
Left Pyelonephritis
Sepsis secondary to the above
Anxiety / Depression
Plan:
Admit for further evaluation and treatment.
IV abx with ceftriaxone for now.
Cultures from last month were positive for mckeon-sensitive E coli.
Urology evaluation - ? stent removal.
Supportive care, pain control, etc.
Original Note:
Family Physician
-
Family Physician: CM OBRIEN PA-C
Chief Complaint
-
left flank pain and fever
History of Present Illness
Patient is a 49-year-old female with past medical history significant for pyelonephritis and anxiety/depression who presented to [facility] ED for evaluation of left flank pain, fever and worsening urinary symptoms. Patient states that last night she
started with flank pain radiating to lower abdomen, fever, nausea, vomiting, diarrhea and urinary symptoms. Patient states she has urinary frequency, urgency and burning. She states earlier this week she had some urinary symptoms and saw urology who
did a urinalysis and started her on Bactrim BID. Which she states she has taken as ordered and started on Tuesday morning. Patient with admission for pyelonephritis in December and had stent placed for obstructing stone.
Medical History
Past Medical History
Past Medical History: Reports Other
Additional Past Medical History:
pyelonephritis
anxiety/depression
celiac disease
endometriosis status post ovary resection
Past Surgical History: Reports Other
Additional Past Surgical History:
Left-sided oophorectomy
ovary resection
Social History
Tobacco: Non-smoker
Alcohol: None
Drug: None
Personal:
Living: Alone
Employment: Employed
Family History
Family History: Other (Maternal grandfather: renal cancer )
Allergies / Home Medications
Allergies reflects when Allergies were last updated in [facility].
Home Medications with original date entered in [facility]
Allergy/Medication List:
Allergies
Allergy/AdvReac Type Severity Reaction Status Date / Time
amoxicillin [From Augmentin] AdvReac Intermediate Diarrhea Verified 12/22/24 15:20
ciprofloxacin AdvReac Intermediate Nausea / Verified 12/22/24 15:20
Vomiting
clavulanic acid AdvReac Intermediate Diarrhea Verified 12/22/24 15:20
[From Augmentin]
Home Medications
venlafaxine 75 mg capsule,extended release 24 hr (Effexor XR) 75 mg PO HS Depression 12/15/24
sumatriptan succinate 50 mg tablet 50 mg PO DAILYPRN PRN migraines 12/20/24
sulfamethoxazole 800 mg-trimethoprim 160 mg tablet 1 tab PO BID #23 tabs 12/22/24
amitriptyline 10 mg tablet 10 mg PO HS 01/18/25
ibuprofen 200 mg tablet (Advil) 400 mg PO Q6HPRN PRN mild pain 01/18/25
trazodone 50 mg tablet 100 mg PO HSPRN PRN sleep 01/18/25
Review of Systems
-
History Source: Patient
Constitutional: Reports Fever, Fatigue and Chills
EENT: Reports No Symptoms
Respiratory: Reports No Symptoms
Cardiac: Reports No Symptoms
Abdomen/GI: Reports Abdominal Pain, Nausea, Vomiting and Diarrhea
: Reports Dysuria, Frequency, Flank Pain and Urgency
Musculoskeletal: Reports No Symptoms
Skin: Reports No Symptoms
Neurological: Reports No Symptoms
Endocrine: Reports No Symptoms
Hematologic/Lymphatic: Reports No Symptoms
Psych: Reports No Symptoms
Physical Exam
Vital Signs
Vital Signs
Temp Pulse Resp BP Pulse Ox
99 F 102 14 119/62 95
01/18/25 19:15 01/18/25 19:45 01/18/25 19:45 01/18/25 19:00 01/18/25 19:15
Physical Exam
General: Well Developed, Well Nourished, No Apparent Distress, Comfortable and Conversant
HEENT: NormoCephalic, Moist mucous membranes, Atraumatic, [place] Conjunctivae, Nose Appears Normal and Ears Appear Normal
Respiratory: Clear
Cardiac: S1/S2 and Regular Rhythm
Breast: Deferred by me
GI: Soft, Non Distended and Normal Bowel Sounds
Rectal: Deferred by Provider
Genito-urinary: Costovertebral angle tend
Musculoskeletal: No Clubbing, No Cyanosis and No Edema
Neuro: Awake, Alert, AO x 3 and Nonfocal/grossly intact
Psych: Calm and Intact Judgment/Insight
Laboratory Results
-
01/18/25 15:24
01/18/25 15:24
Laboratory Results
Lactic Acid Cancelled 01/18/25 15:30
Total Bilirubin 1.7 mg/dl (0.2-1.3) H 01/18/25 15:24
AST 45 U/L (14-36) H 01/18/25 15:24
ALT 26 U/L (0-35) 01/18/25 15:24
Alkaline Phosphatase 86 U/L (38-126) 01/18/25 15:24
Data Reviewed
-
Lab Data: Labs Reviewed by me (WBC 16.2, Neut 93.0)
Impression/Plan
-
IMPRESSION/PLAN:
#sepsis 2/2 likely UTI
#Hx pyelonephritis
WBC 16.2, Neut 93.0
- Admit to med/surg
- Consult Urology
- IV antibiotics
- IVF
- supportive care
#anxiety/depression
- continue amitriptyline, trazodone and venlafaxine
Code status: full code
DVT Prophylaxis: SCDs
--- NOTE | 2025-01-18 20:33 | EDRN ---
Patricia Bishop CATERING ASSOCIATE in to see pt at this time for hospitalist group.
[2025-01-19] MEDS: NSS 1000 IV ×3 (00:07→23:34)
[2025-01-19] MEDS: DESYREL 100 MG PO ×2 (00:16→23:27)
[2025-01-19] MEDS: STERILE WATER FOR INJECTION 10 ML IV ×2 (00:17→23:27)
[2025-01-19] MEDS: ROCEPHIN 1000 MG IV ×2 (00:17→23:27)
[2025-01-19] MEDS: DILAUDID 0.5 MG IV ×3 (00:17→23:34)
[2025-01-19] MEDS: ELAVIL 10 MG PO ×2 (00:17→22:03)
[2025-01-19] MEDS: EFFEXOR XR 75 MG PO ×2 (00:23→22:03)
--- NOTE | 2025-01-19 00:40 | PTCARENOTE ---
Pt received from ED via stretcher. Ambulated to bed indepedently w/o incident. Oriented to surroundings and plan of care discussed. Admission and assessment completed. Reports 8/10 L flank pain, requesting HS amitriptyline, and pyridium for
urinary symptoms. WAREHOUSE ASSISTANT covering house contacted w/requests, electronic orders received (refer to MAR). Aware of outstanding urine specimen, verbalizes understanding. #20 RAC w/NSS at 100 mL/hr. Call kim w/in reach.
[2025-01-19 01:04] LABS: Urine Albumin 3+ (Neg - Trace); Urine Bilirubin 1+ (Negative); Urine Character Cloudy (Clear); Urine Color Amber; Urine Glucose Negative (Negative); Urine Ketone Negative (Negative); Urine Leukocyte 3+ (Negative); Urine Nitrite Positive (Negative); Urine Occult Blood 4+ (Negative); Urine Urobilinogen 1+ (Neg - 1+)
[2025-01-19] MEDS: ZOFRAN 4 MG IV (01:06)
[2025-01-19 01:20] LABS: Urine Red Blood Cell >100 /HPF (0-2); Urine White Cell >100 /HPF (0-5)
[2025-01-19 07:14] VITALS: BP 100/61
[2025-01-19 08:01] LABS: INR 1.04; PT 13.9 Sec (11.4-14.6)
[2025-01-19 08:29] LABS: ALT (SGPT) 19 U/L (0-35); AST (SGOT) 33 U/L (14-36); Albumin 3.4 g/dl (3.5-5.0); Alkaline Phosphatase 52 U/L (38-126); Blood Urea Nitrogen 18 mg/dl (7-17); Calcium 8.8 mg/dl (8.4-10.2); Carbon Dioxide 23 mmol/L (22-30); Chloride 109 mmol/L (98-107); Estimated Creatinine Clearance 72 ml/min; Glucose 99 mg/dl (70-99); Sodium 141 mmol/L (135-145); Total Bilirubin 0.7 mg/dl (0.2-1.3); Total Protein 5.6 g/dl (6.3-8.2); eGFR > 60.00
[2025-01-19 09:07] LABS: Hematocrit 25.6 % (37.0-47.0); Hemoglobin 7.9 g/dL (12.0-16.0); Mean Corp Hgb Conc. 30.9 g/dL (33.0-37.0); Mean Corpuscular Hgb 32.6 pg (27.0-31.0); Mean Corpuscular Volume 105.8 fL (81.0-99.0); Mean Platelet Volume 10.3 fL (7.4-10.4); Platelet Count 197 10^3/uL (130-400); Red Blood Cell Count 2.42 10^6/uL (4.20-5.40); Red Cell Dist. Width 18.8 % (11.5-14.5); White Blood Cell Count 6.6 10^3/uL (4.8-10.8)
--- NOTE | 2025-01-19 10:27 | CM ---
Reviewed the chart notes and spoke with the patient at the bedside. The patient resides alone in a second floor apartment with 16 steps to enter. The patient reports no DME/VN/SNF in the past. The patient confirmed her pharmacy fo choice is the
[facility]. CM continues to be available to patient/family and is monitoring medical plan for needs at discharge.
Plan: Discharge to home when medically stable. No needs identified at this time.
--- NOTE | 2025-01-19 14:09 | W.PN.HOSP.TC ---
Today's Communication/Plan
-
cont rocephin
await cultures
Assessment / Plan
Assessment / Plan
pt is a 49 year old female
sepsis (POA) due to pyelonephritis --has had stent in December--apprec urology--cont rocephin and planned stent removal Tuesday--cont IVF--cultures pending
acute anemia--AM labs drawn above an IV line and NOT reliable--repeating
anemia of chronic disease--HGB averages about 11--says she gets iron infusions sometimes
anxiety/depression -- cont effexor, amitriptyline
DVT proph
code status -- FULL CODE
Anticipated Discharge: > 48 hours
Subjective/Interval History
-
Date of Service: January 19, 2025
pt without c/o--hungry
Objective Data
-
Labs:
Laboratory Results
01/19/25 01/19/25
06:02 14:07
WBC 6.6
Hgb 7.9 L D Pending
Hct 25.6 L Pending
Plt Count 197 D
PT 13.9
INR 1.04
APTT 29.0
Sodium 141
Potassium 4.0
Chloride 109 H
Carbon Dioxide 23
BUN 18 H
Creatinine 0.7
Glucose 99
Calcium 8.8 D
Total Bilirubin 0.7 D
AST 33
ALT 19
Alkaline Phosphatase 52
Vital Signs:
max temp for 24 hours
01/18/25
19:15
Temp 99 F
Vital Signs
Temp Pulse Resp BP Pulse Ox
98.2 F 108 16 100/61 98
01/19/25 07:14 01/19/25 07:14 01/19/25 07:14 01/19/25 07:14 01/19/25 07:14
I&O
01/18/25 01/19/25 01/20/25
06:59 06:59 06:59
Intake Total 1180 / 1180
Balance 1180 / 1180
Review of Systems
-
All other systems: Reviewed and negative
Physical Exam
-
General: Well Developed, Well Nourished and No Apparent Distress
HEENT: Normocephalic and Atraumatic
Respiratory: Clear to Auscultation; Negative Wheezes or Rhonchi
Cardiac: Regular Rhythm and S1/S2; Negative Murmur
GI: Soft, Nontender, Nondistended and Normal Bowel Sounds
Genito-urinary: Costovertebral Angle Tend (left)
Musculoskeletal: No Clubbing, No Cyanosis and No Edema
Neuro: Awake
[2025-01-19] MEDS: TYLENOL 650 MG PO (14:24)
[2025-01-19 14:31] LABS: Hemoglobin 8.1 g/dL (12.0-16.0)
[2025-01-19 15:12] VITALS: BP 108/62
[2025-01-19] MEDS: LOVENOX 40 MG SC (17:10)
[2025-01-19 23:43] VITALS: BP 117/72
[2025-01-20] MEDS: NSS 1000 IV ×2 (06:03→16:39)
[2025-01-20 07:35] VITALS: BP 100/65
[2025-01-20 07:49] LABS: Hematocrit 28.3 % (37.0-47.0); Hemoglobin 8.8 g/dL (12.0-16.0); Mean Corp Hgb Conc. 31.1 g/dL (33.0-37.0); Mean Corpuscular Hgb 33.6 pg (27.0-31.0); Mean Platelet Volume 10.1 fL (7.4-10.4); Platelet Count 192 10^3/uL (130-400); Red Blood Cell Count 2.62 10^6/uL (4.20-5.40); Red Cell Dist. Width 17.3 % (11.5-14.5); White Blood Cell Count 3.7 10^3/uL (4.8-10.8)
[2025-01-20 08:00] LABS: Blood Urea Nitrogen 10 mg/dl (7-17); Carbon Dioxide 28 mmol/L (22-30); Chloride 110 mmol/L (98-107); Estimated Creatinine Clearance 84 ml/min; Glucose 93 mg/dl (70-99); Magnesium 1.9 mg/dl (1.6-2.3); Potassium 3.8 mmol/L (3.5-5.1); Sodium 145 mmol/L (135-145); eGFR > 60.00
--- NOTE | 2025-01-20 09:21 | CONS.URO ---
Consultation
-
Performing Provider: Peffer
Reason for Consultation: UTI, kidney stone
Medical History
History of Present Illness
49F with recent L ureteral stone s/p ureteral stent placement 12/2024
Followed up with Dr. Bowser last week and was scheduled for ureteroscopy
Treated outpatient for suspected UTI however her symptoms worsened and she developed fevers
Admitted to ED with sepsis
Since starting abx she has been afebrile and feeling better
Past Medical History
Past Medical History: Other (pyelonephritis anxiety/depression celiac disease endometriosis status post ovary resection)
Social History
Tobacco: Non-smoker
Alcohol: None
Drug: None
Living: Alone
Family History
Family History: Reviewed & Not Pertinent
Allergies/Home Medications
Allergies
Allergy/AdvReac Type Severity Reaction Status Date / Time
amoxicillin [From Augmentin] Allergy Diarrhea Verified 01/18/25 23:40
ciprofloxacin Allergy Nausea / Verified 01/18/25 23:40
Vomiting
clavulanic acid Allergy Diarrhea Verified 01/18/25 23:40
[From Augmentin]
Home Medications
�Medication �Instructions �Recorded �Confirmed �Type
venlafaxine 75 mg capsule,extended 75 mg PO HS Depression 12/15/24 01/18/25 History
release 24 hr (Effexor XR)
sumatriptan succinate 50 mg tablet 50 mg PO DAILYPRN PRN migraines 12/20/24 01/18/25 History
sulfamethoxazole 800 1 tab PO BID #23 tabs 12/22/24 01/18/25 Rx
mg-trimethoprim 160 mg tablet
amitriptyline 10 mg tablet 10 mg PO HS Mental Health 01/18/25 01/18/25 History
ibuprofen 200 mg tablet (Advil) 400 mg PO Q6HPRN PRN mild pain 01/18/25 01/18/25 History
trazodone 50 mg tablet 100 mg PO HSPRN PRN sleep 01/18/25 01/18/25 History
Physical Exam
Vital Signs
Vital Signs
Temp Pulse Resp BP Pulse Ox
98.2 F 89 16 100/65 94
01/20/25 07:35 01/20/25 07:35 01/20/25 07:35 01/20/25 07:35 01/20/25 07:35
Lab / Testing Results
Laboratory Results
01/20/25 06:02
01/20/25 06:02
Physical Exam
General: Well Developed, Well Nourished and No Apparent Distress
Respiratory: Clear and Non Labored Respirations
GI: Soft and Non Tender
Neuro: AO x 3
Psych: Calm and Intact Judgement
Assessment / Plan
-
49F with 3mm L ureteral stone s/p stent placement 12/2024
Admitted with sepsis and UTI prior to planned ureteroscopy
- Continue IV abx
- Urine culture pending - may result negative due to PO abx use prior to admission, but improving clinically
- If infection remains well controlled, plan for OR tomorrow for ureteroscopy, laser lithotripsy, stent exchange vs removal
- NPO at [facility]
[2025-01-20] MEDS: ZOFRAN 4 MG IV (09:44)
--- NOTE | 2025-01-20 09:47 | W.PN.HOSP.TC ---
Today's Communication/Plan
-
zofran for n/v
follow HGB
follow cultures
for stent removal in AM
renew IVF
Assessment / Plan
Assessment / Plan
pt is a 49 year old female
sepsis (POA) due to pyelonephritis --has had stent in December--apprec urology--cont rocephin and planned stent removal Tuesday--cont IVF--urine culture pending, blood cultures negative
acute on chronic anemia--HGB has gradually increased from low of 7.9, 8.1, 8.8 (possible dilutional from IVF?)--will check iron studies--HGB averages about 11--says she gets iron infusions sometimes
anxiety/depression -- cont effexor, amitriptyline
DVT proph
code status -- FULL CODE
Anticipated Discharge: > 48 hours
Subjective/Interval History
-
Date of Service: January 20, 2025
pt stated with nausea/vomiting this AM
Objective Data
-
Labs:
Laboratory Results
01/20/25
06:02
WBC 3.7 L
Hgb 8.8 L
Hct 28.3 L
Plt Count 192
Sodium 145
Potassium 3.8
Chloride 110 H
Carbon Dioxide 28
BUN 10
Creatinine 0.6
Glucose 93
Calcium 9.0
Vital Signs:
max temp for 24 hours
01/20/25
07:35
Temp 98.2 F
Vital Signs
Temp Pulse Resp BP Pulse Ox
98.2 F 89 16 100/65 94
01/20/25 07:35 01/20/25 07:35 01/20/25 07:35 01/20/25 07:35 01/20/25 07:35
I&O
0401/20/25 01/21/25
06:59 06:59 06:59
Intake Total 1180 / 1180 3360 / 3360
Balance 1180 / 1180 3360 / 3360
Review of Systems
-
All other systems: Reviewed and negative
Abdomen/GI: Reports Nausea and Vomiting; Denies Abdominal Pain
Physical Exam
-
General: Well Developed, Well Nourished and No Apparent Distress
HEENT: Normocephalic and Atraumatic
Respiratory: Clear to Auscultation; Negative Wheezes or Rhonchi
Cardiac: Regular Rhythm and S1/S2; Negative Murmur
GI: Soft, Nontender, Nondistended and Normal Bowel Sounds
Musculoskeletal: No Clubbing, No Cyanosis and No Edema
Neuro: Awake and Alert
[2025-01-20] MEDS: PHENERGAN 51 MG IV (13:56)
[2025-01-20] MEDS: IMITREX 50 MG PO (14:47)
[2025-01-20] MEDS: DILAUDID 0.5 MG IV ×2 (14:50→21:30)
[2025-01-20 15:05] VITALS: BP 103/55
[2025-01-20] MEDS: LOVENOX 40 MG SC (17:47)
[2025-01-20 19:05] VITALS: BP 127/47
[2025-01-20] MEDS: ELAVIL 10 MG PO (21:24)
[2025-01-20] MEDS: EFFEXOR XR 75 MG PO (21:25)
[2025-01-20] MEDS: ROCEPHIN 1000 MG IV (23:26)
[2025-01-20] MEDS: STERILE WATER FOR INJECTION 10 ML IV (23:26)
[2025-01-20] MEDS: DESYREL 100 MG PO (23:27)
[2025-01-20 23:37] VITALS: BP 117/70
[2025-01-21] VITALS (11 sets, daily range): BP systolic 102–141; BP diastolic 62–86
[2025-01-21] MEDS: NSS 1000 IV ×2 (02:42→12:31)
--- NOTE | 2025-01-21 07:09 | W.PN.URO.CBU ---
Today's Communication / Plan
-
OR today
Assessment / Plan
-
49F with 3mm L ureteral stone s/p stent placement 12/2024
Admitted with sepsis and possible UTI prior to planned ureteroscopy
Found to be + for norovirus
- Continue IV abx
- Urine culture pending - may result negative due to PO abx use prior to admission, but improving clinically
- If infection remains well controlled, plan for OR tomorrow for ureteroscopy, laser lithotripsy, stent exchange vs removal
- NPO at [facility]
Diagnosis
-
Date of Service: January 21, 2025
-
Patient Diagnosis:
L ureteral stone s/p stent
Fever
Norovirus
Post Op Day:
Subjective
-
diarrhea yesterday
+norovirus
Objective
-
Vital Signs
Temp Pulse Resp BP Pulse Ox
98.6 F 86 20 117/70 96
01/20/25 23:37 01/20/25 23:37 01/20/25 23:37 01/20/25 23:37 01/20/25 23:37
Intake and Output
01/20/25 01/21/25 01/22/25
06:59 06:59 06:59
Intake Total 3360 / 3360 3150 / 3150
Output Total 200 / 200
Balance 3360 / 3360 2950 / 2950
Intake:
Oral fluids 960 / 960 1950 / 1950
IV fluids (Total) 2400 / 2400 1200 / 1200
Output:
Emesis 200 / 200
Other:
Number of approximated SMALL 2
amounts of urine
Number of approximated MODERATE 3
amounts of urine
Number of approximated LARGE 1
amounts of urine
Number of immeasurable emeses? 1
Physical Exam
-
General - well developed, well nourished, no acute distress
Chest - clear bilaterally
Abdomen - soft, non-tender
[2025-01-21 07:30] LABS: Hematocrit 25.6 % (37.0-47.0); Hemoglobin 8.2 g/dL (12.0-16.0); Mean Corpuscular Hgb 33.7 pg (27.0-31.0); Mean Corpuscular Volume 105.3 fL (81.0-99.0); Platelet Count 161 10^3/uL (130-400); Red Blood Cell Count 2.43 10^6/uL (4.20-5.40); Red Cell Dist. Width 15.9 % (11.5-14.5); White Blood Cell Count 3.7 10^3/uL (4.8-10.8)
[2025-01-21 08:00] LABS: Blood Urea Nitrogen 6 mg/dl (7-17); Calcium 8.7 mg/dl (8.4-10.2); Carbon Dioxide 26 mmol/L (22-30); Chloride 109 mmol/L (98-107); Estimated Creatinine Clearance 84 ml/min; Glucose 94 mg/dl (70-99); Iron 84 ug/dl (37-170); Magnesium 1.8 mg/dl (1.6-2.3); Potassium 3.9 mmol/L (3.5-5.1); Sodium 143 mmol/L (135-145); eGFR > 60.00
[2025-01-21 08:09] LABS: Percent Saturation 36 % (20-50); Total Iron Binding Capacity 233 ug/dl (265-497)
[2025-01-21 08:34] LABS: Ferritin 78.3 ng/ml (6.24-137)
[2025-01-21 09:05] LABS: Folate 12.6 ng/ml (2.76-20); Vitamin B12 997 pg/ml (239-931)
--- NOTE | 2025-01-21 09:44 | CM ---
Reviewed the chart notes. Patient Norovirus +. Per notes, OR tomorrow for ureteroscopy, laser lithotripsy, stent exchange vs removal. CM continues to be available to patient/family and is monitoring medical plan for needs at discharge.
Plan: Discharge to home when medically stable. No needs anticipated at this time.
--- NOTE | 2025-01-21 10:14 | W.SUR.PREOP ---
Pre-Operative Surgical Note
-
I have examined this patient prior to the performance of the scheduled procedure.
The patient's condition is unchanged from the time of the current History and
Physical and the patient is able to undergo the scheduled procedure.
[2025-01-21] MEDS: DILAUDID 0.5 MG IV ×2 (10:17→19:38)
[2025-01-21] MEDS: ZOFRAN 4 MG IV (10:18)
[2025-01-21 11:45] LABS: HCG, Serum Qualitative Screen Negative
--- NOTE | 2025-01-21 14:11 | W.PN.HOSP.TC ---
Today's Communication/Plan
-
OR today
Assessment / Plan
Assessment / Plan
49-year-old female with pyelonephritis
CVS: S1-S2 normal
Chest: CTA B/L
Abdomen: Soft, Bowel sounds present
Extremities: No edema, normal pulses
# Sepsis due to pyelonephritis
History of Left ureteral stent in December-plan for stent removal
Continue ceftriaxone-current culture negative however had pansensitive E. coli in the past
Urine cultures pending
Blood cultures negative
# Acute on chronic anemia
Iron studies adequate
History of iron infusions in the past
# Norovirus infection-isolation protocol discussed with pt.
# Mild LFT elevation-better
# Anxiety /depression-continue Effexor, trazodone and amitriptyline
# Celiac disease
# Migraines-as needed sumatriptan
# History of left oophorectomy and fallopian tube surgery for endometriosis
# DVT prophylaxis-
# Full code
D/W RN
D/W DAUGHTER AT BED SIDE
Anticipated Discharge: Within 24 hours
Subjective/Interval History
-
Date of Service: January 21, 2025
Objective Data
-
Labs:
Laboratory Results
01/21/25
07:00
WBC 3.7 L
Hgb 8.2 L
Hct 25.6 L
Plt Count 161
Sodium 143
Potassium 3.9
Chloride 109 H
Carbon Dioxide 26
BUN 6 L
Creatinine 0.6
Glucose 94
Calcium 8.7
Vital Signs:
Vital Signs
Temp Pulse Resp BP Pulse Ox
98.3 F 85 16 102/65 94
01/21/25 07:30 01/21/25 07:30 01/21/25 07:30 01/21/25 07:30 01/21/25 07:30
I&O
01/20/25 01/21/25 01/22/25
06:59 06:59 06:59
Intake Total 3360 / 3360 3150 / 3150
Output Total 200 / 200
Balance 3360 / 3360 2950 / 2950
--- NOTE | 2025-01-21 16:06 | W.IMMPOSTOP ---
Surgical Immed Post Op Note
-
Primary Surgeon: Niels
Pre-op Diagnosis: Obstructing left ureteral stone s/p stent placement, E. Coli left pyelonephritis
Post-op Diagnosis: Same
Procedure Performed: cysto, left ULS + stent exchange
Anesthesia Type: LMA
Specimen / Cultures: stone for analysis/None
Estimated Blood Loss: Negligible
Drains: 4.7Fr x 22 cm JJ left ureteral stent
Complications: None
Operative Findings: fibrotic-appearing proximal and mid left ureter w/ mild ureteral stenosis noted - flexible digital and MR6 semi-rigid advanced throughout w/o difficulty, 4 mm stone manipulated into renal calyx and fragmented to 1-2 mm fragments
and stone dust, final KUB + cysto confirmed satisfactory stent positioning
--- NOTE | 2025-01-21 16:13 | W.PN.UPDATE ---
Update Note
Progress Note Update
Given recent h/o E. Coli pyelonephritis (and concomitant norovirus), advise observation o/n.
s/p left ureteroscopy/laser lithotripsy/stone extraction/stent exchange today - w/o event.
Plan for office cysto + stent removal in ~1-2 weeks.
--- NOTE | 2025-01-21 17:50 | PTCARENOTE ---
Patient received from PACU in bed; denies pain; drowsy; VSS; ambulated to bathroom (standby assist); steady gait; no complaints; independent at baseline; dinner ordered.
[2025-01-21] MEDS: LOVENOX 40 MG SC (17:58)
[2025-01-21] MEDS: FLUSH (NSS) 3 FLUSH IV (19:39)
[2025-01-21] MEDS: EFFEXOR XR 75 MG PO (21:07)
[2025-01-21] MEDS: ELAVIL 10 MG PO (21:07)
[2025-01-21] MEDS: ROCEPHIN 1000 MG IV (23:04)
[2025-01-21] MEDS: DESYREL 100 MG PO (23:04)
[2025-01-21] MEDS: STERILE WATER FOR INJECTION 10 ML IV (23:04)
[2025-01-21] MEDS: FLUSH (NSS) 5 FLUSH IV (23:05)
[2025-01-22 03:20] VITALS: BP 109/71
[2025-01-22] MEDS: DILAUDID 0.5 MG IV (07:31)
[2025-01-22 07:55] VITALS: BP 121/71
[2025-01-22 07:58] LABS: Hematocrit 27.6 % (37.0-47.0); Hemoglobin 8.9 g/dL (12.0-16.0); Mean Corp Hgb Conc. 32.2 g/dL (33.0-37.0); Mean Corpuscular Hgb 33.2 pg (27.0-31.0); Mean Platelet Volume 9.2 fL (7.4-10.4); Platelet Count 179 10^3/uL (130-400); Red Blood Cell Count 2.68 10^6/uL (4.20-5.40); Red Cell Dist. Width 14.8 % (11.5-14.5); White Blood Cell Count 5.1 10^3/uL (4.8-10.8)
[2025-01-22 08:37] LABS: Blood Urea Nitrogen 8 mg/dl (7-17); Calcium 9.1 mg/dl (8.4-10.2); Carbon Dioxide 27 mmol/L (22-30); Chloride 106 mmol/L (98-107); Estimated Creatinine Clearance 84 ml/min; Glucose 112 mg/dl (70-99); Potassium 3.7 mmol/L (3.5-5.1); Sodium 142 mmol/L (135-145); eGFR > 60.00
[2025-01-22 11:30] VITALS: BP 110/82
--- NOTE | 2025-01-22 11:44 | W.PN.HOSP.TC ---
Addendum entered and electronically signed by Kang Michael MD 01/22/25 15:53:
Dictation- [id number]
Original Note:
Today's Communication/Plan
-
Discharge
Assessment / Plan
Assessment / Plan
49-year-old female with pyelonephritis
CVS: S1-S2 normal
Chest: CTA B/L
Abdomen: Soft, Bowel sounds present
Extremities: No edema, normal pulses
# Sepsis ruled out
Pyelonephritis ruled out
History of Left ureteral stent in December-plan for stent removal
Culture negative, had pansensitive E. coli in the past
Urine cultures neg
Blood cultures negative
Status post cystoscopy, left lithotripsy, stent exchange 01/21/[address] Bowser.
No antibiotics needed per discussion.
She was treated with 4 and half days of Bactrim as outpatient and also received antibiotics here. Cultures are negative
# Acute on chronic anemia
Iron studies adequate
History of iron infusions in the past
She said that she has been anemic as a child also. She follows with hematology as outpatient.
Patient has had endoscopy for celiac disease. I discussed that she needs a colonoscopy also to be done
Encouraged her to follow-up with GI and hematology as outpatient for further workup.
# Norovirus infection-isolation protocol discussed with pt. No diarrhea now
# Mild LFT elevation-better
# Anxiety /depression-continue Effexor, trazodone and amitriptyline
# Celiac disease
# Migraines-as needed sumatriptan
# History of left oophorectomy and fallopian tube surgery for endometriosis
# DVT prophylaxis-scds
# Full code
D/W RN
Discussed with urology
Anticipated Discharge: Today
Subjective/Interval History
-
Date of Service: January 22, 2025
Objective Data
-
Labs:
Laboratory Results
04/22/25
07:30
WBC 5.1
Hgb 8.9 L
Hct 27.6 L
Plt Count 179
Sodium 142
Potassium 3.7
Chloride 106
Carbon Dioxide 27
BUN 8
Creatinine 0.6
Glucose 112 H
Calcium 9.1
Vital Signs:
Vital Signs
Temp Pulse Resp BP Pulse Ox
98.1 F 76 16 121/71 98
01/22/25 07:55 01/22/25 07:55 01/22/25 07:55 01/22/25 07:55 01/22/25 08:07
I&O
01/21/25 01/22/25 01/23/25
06:59 06:59 06:59
Intake Total 3150 / 3150 940 / 940
Output Total 200 / 200
Balance 2950 / 2950 940 / 940
--- NOTE | 2025-01-22 11:47 | W.DS.TRANS ---
DC Summary - Trust Evaluation Supervisor
-
Discharge Instructions:
Discharge Diagnosis/Procedures Left ureteral status post cystoscopy, stone
procedure and stent exchange left side
Chronic anemia
Norovirus infection
Anxiety and depression
Celiac disease
Migraines
Diet As tolerated
Activity As tolerated
Driving Restrictions As prior to admission
Instructions:
Stand-Alone Forms:
Changes to Home Medications: Yes
Discharge Medications:
DC Medications w/original date entered in [email or web address]
venlafaxine 75 mg capsule,extended release 24 hr (Effexor XR) 75 mg PO HS Depression 12/15/24
sumatriptan succinate 50 mg tablet 50 mg PO DAILYPRN PRN migraines 12/20/24
amitriptyline 10 mg tablet 10 mg PO HS Mental Health 01/18/25
trazodone 50 mg tablet 100 mg PO HSPRN PRN sleep 01/18/25
Home Medication Changes
Ibuprofen stop
Pending Results: Yes
Additional Pending Results:
Stone analysis
--- NOTE | 2025-01-22 12:18 | CM ---
Discharge to home today; no needs
== END 2025-01-22 14:30 | disposition home or self-care (01) | DRG 872 ==
LOC: 2 NORTH 21:24
PROVIDERS: Internal Medicine; Nurse Practitioner Family; Physician Assistant Medical; Surgery; ADMITTING PHYSICIAN Hospitalist; ATTENDING PHYSICIAN Hospitalist; CONSULT PHYSICIAN Urology; EMERGENCY PHYSICIAN Emergency Medicine; FAMILY PHYSICIAN Physician Assistant Medical
DX: A41.9 Sepsis, unspecified organism (principal); A08.11 Acute gastroenteropathy due to Norwalk agent; N12 Tubulo-interstitial nephritis, not specified as acute or chronic; D63.8 Anemia in other chronic diseases classified elsewhere; F32.A Depression, unspecified; F41.9 Anxiety disorder, unspecified; K90.0 Celiac disease
CPT/HCPCS: 74018; 76000; 80048; 80053; 81003; 81015; 82365; 82607; 82728; 82746; 83540; 83550; 83605; 83735; 84703; 85014; 85018; 85025; 85027; 85610; 85730; 87040; 87086; 87798; 96361; 96374; 96375; 99284; C1769; C2617